=== PATIENT | female | born 1960 | race Caucasian/White ===

== ENCOUNTER → 2016-11-30 | Outpatient (CLI) | payer OTHER ==
[~2016-11-30] MED LIST: ALPR0.254 PO; BP MED; CEFD300C3 PO; CYCL10TA9 PO; DIVA500T PO; ENAL10TA PO; ETOD200C9 PO; FAMO20TA5 PO; GABA-488 PO; HUM100IN4 SQ; HUM100VI SQ; HYDR-700 PO; HYDR-757 PO; INSA70301U SQ; INSU100V16 SC; INSU100V5 SQ; INSULIN; LCT30U PO; LORA-794 PO; LORA10TA7 PO; SERT100T8 PO; SIMV10TA3 PO; SULF1TAB35 PO; TRAM50TA2 PO; TRZ100T PO
--- NOTE | 2016-11-30 13:45 | Diagnostic Imaging Report ---
Lumbar spine. INDICATION: Back pain. FINDINGS: AP, lateral, and spot lateral views were obtained. There are no prior studies available for comparison. The lateral view shows slight retrolisthesis of L5 with respect to S1. There is also fairly severe narrowing of the disc space at L4-L5. The other intervertebral disc spaces are well maintained. There is no fracture or acute bony abnormality evident. There is mild symmetrical sclerosis of the sacroiliac joints. There is no sign of a paraspinal mass. On the spot lateral view, there does appear to be bony overgrowth about the distal sacrum. Most likely, this is a sequela of prior trauma to the sacrum. IMPRESSION: 1. There is no evidence for an acute bony abnormality; however, there does appear to be a healed fracture of the distal sacrum. 2. There is degenerative disc and bony disease in the lower lumbar spine. If there is clinical concern regarding spinal stenosis or nerve root encroachment in this area, then MRI will be recommended for further study. Dictated by: Dictated on workstation # [id number]
== END ==
LOC: RAD 10:05
PROVIDERS: ATTEND Neuromusculoskeletal Medicine, Sports Medicine
DX: Z02.71 Encounter for disability determination (principal)
CPT/HCPCS: 72100

== ENCOUNTER 2018-12-26 05:39 | Outpatient (CLI) | payer MEDICARE, MEDICAID ==
[~2018-12-26] VITALS: Ht 170.2 cm; Wt 70.5 kg
== END 2018-12-26 12:33 | disposition home or self-care (01) ==
LOC: PREOP 05:39
PROVIDERS: ATTEND Surgery
DX: Z01.818 Encounter for other preprocedural examination (principal)

== ENCOUNTER 2019-01-02 08:41 | Day surgery (SDC) | payer MEDICARE, MEDICAID ==
[~2019-01-02] VITALS: Ht 170.2 cm; Wt 70.5 kg
[~2019-01-02 08:41] MED LIST changes: +ALPR0.5T7 PO; +HYDR-4226 PO; -HYDR-757 PO; +LIRA0.6P SQ; +LISI-552 PO; +PANT40TA3 PO; +SIMV20TA PO; +TRAZ-190 PO
[2019-01-02] MEDS ORDERED: LACTATED RINGERS 1,000 ML IV STA (08:44)
[2019-01-02] MEDS ORDERED: LACTATED RINGERS 1,000 ML IV ONE (08:51)
[2019-01-02 08:52] VITALS: BP 127/83
[2019-01-02] MEDS ORDERED: PROPOFOL INJECTION 0 ML IV ONE (08:56)
[2019-01-02] MEDS ORDERED: MIDAZOLAM 2 MG/2 ML (VERSED) VIAL ONE (08:57)
--- NOTE | 2019-01-02 09:08 | Progress Note-Pre Operative ---
Pre-Operative Progress Note H&P Reviewed The H&P was reviewed, patient examined and no changes noted. Date Seen by Provider: Jan 02, 2019 Time Seen by Provider: 09:08 Date H&P Reviewed: Jan 02, 2019 Time H&P Reviewed: 09:08 Pre-Operative Diagnosis: GERD, CHange in bowel habits, family hx colon cancer, chronic constipation GRAHAM CHIANG DO Jan 02, 2019 09:08
[2019-01-02] MEDS ORDERED: HURRICAINE EXT TUBE (BENZOCAINE) ONE (09:11)
[2019-01-02] MEDS ORDERED: PROPOFOL INJECTION 50 ML IV ONE (09:41)
[2019-01-02] MEDS ORDERED: proPOfol 200 MG/20 ML (DIPRIVAN) VIAL IV ONE (09:48)
[2019-01-02] MEDS ORDERED: HURRICAINE EXT TUBE (BENZOCAINE) XX ONE (10:00)
--- NOTE | 2019-01-02 10:14 | Progress Note-Post Operative ---
Post-Operative Progess Note Surgeon (s)/Packing Tractor Machine Operator (s) Surgeon GRAHAM CHIANG DO Packing Tractor Machine Operator: na Pre-Operative Diagnosis GERD, CHange in bowel habits, family hx colon cancer, chronic constipation Post-Operative Diagnosis gastritis, hiatal hernia, colon polyps, hemorrhoids Procedure & Operative Findings Date of Procedure 01/02/19 Procedure Performed/Findings egd c biopsies, colonoscopy c hot bx polypectomy x 3 and snare polypectomy x 1 Anesthesia Type per private branch exchange service advisor Estimated Blood Loss Estimated blood loss (mL): none Specimens/Packing Specimens Removed colon polyps, antrum, body, ge GRAHAM CHIANG DO Jan 02, 2019 10:14
[2019-01-02] MEDS ORDERED: SUCR1TAB36 PO (10:15)
--- NOTE | 2019-01-02 10:16 | Discharge Inst-Simple/Standard ---
Discharge Inst-Standard Discharge Medications New, Converted or Re-Newed RX: Transmitted to Pharmacy Patient Instructions/Follow Up Plan of Care/Instructions/FU: 2 weeks Estiven Activity as Tolerated: Yes Discharge Diet: Regular Diet (high fiber) GRAHAM CHIANG DO Jan 02, 2019 10:16
[2019-01-02 10:20] VITALS: BP 97/53
[2019-01-02 10:50] VITALS: BP 120/77
[2019-01-02 11:12] VITALS: BP 120/77
--- NOTE | 2019-01-02 13:02 | Anesthesia-General Post-Op ---
MAC Patient Condition Mental Status/LOC: Same as Preop Cardiovascular: Satisfactory Nausea/Vomiting: Absent Respiratory: Satisfactory Pain: Controlled Complications: Absent Post Op Complications Complications None Follow Up Care/Instructions Patient Instructions None needed. Anesthesiology Discharge Order Discharge Order Patient is doing well, no complaints, stable vital signs, no apparent adverse anesthesia problems. No complications reported per nursing. ALEX COWART CRNA Jan 02, 2019 13:02
--- NOTE | 2019-01-02 14:39 | OPERATIVE REPORT ---
DATE OF SERVICE: PREOPERATIVE DIAGNOSES: Gastroesophageal reflux disease, change in bowel habits, family history of colon cancer and chronic constipation. POSTOPERATIVE DIAGNOSES: Gastritis, hiatal hernia, colon polyps and hemorrhoids. PROCEDURES PERFORMED: EGD with biopsy, colonoscopy with hot biopsy polypectomy x 3 and snare polypectomy x 1. SURGEON: Graham Jean-Baptiste DO. ANESTHESIA: Per SALON SUPERVISOR. ESTIMATED BLOOD LOSS: None. COMPLICATIONS: None. INDICATIONS: The patient is a 58-year-old female with diagnoses as above. She was explained risks and benefits of the procedures and wished to proceed with procedures. Consent was signed in the chart. PROCEDURE: The patient was taken to the endoscopy suite and placed in the left lateral recumbent position. Timeout was performed. Scope was inserted in the mouth, down the esophagus, stomach and into the duodenum without difficulty. There were no polyps, masses or ulcerations within the duodenum. Scope was slowly retracted back into the stomach where it was further insufflated. Changes of chronic gastritis were present. Biopsies of the stomach and body were obtained. No polyps, masses or ulcerations. The scope was retroflexed just noting a small hiatal hernia, no other pathology noted. Scope was returned to its normal position and slowly withdrawn. In the distal esophagus, there were some slight erythematous changes. Biopsy was obtained. No other changes. Scope was slowly retracted back until completely removed, noting no other pathology. Digital rectal exam was performed. There was some hemorrhoidal disease. No polyps, masses or ulcerations. The scope was inserted in the rectum and advanced all the way to the cecum with minimal difficulty. Prep was adequate. Scope was then slowly retracted back. There were no polyps, masses or ulcerations within the cecum. In the ascending, small polyp was present, which hot biopsy polypectomy was performed. Scope was continued to be slowly retracted back. No polyps, masses or ulcerations within the remainder of the ascending colon, transverse colon, descending colon and sigmoid colon. In the rectum, there is a large polyp, which snare polypectomy was performed. The specimen was too large to be suctioned; therefore it was withdrawn. The scope was reinserted to the point where the specimen was. Near the same locations just opposite side of the rectum was a very small polyp, which hot biopsy polypectomy was performed. Scope was then slowly retracted back into the distal rectum where another polyp was present, which hot biopsy polypectomy was performed. Scope was then slowly retracted back and then retroflexed noting internal hemorrhoidal disease. Scope was returned to its normal position, slowly withdrawn until completely removed, noting no other pathology. The patient tolerated the procedure well without any complications. She was taken to the recovery room in stable condition. RECOMMENDATIONS: The patient will continue on current medications. We will add Carafate 1 gram four times a day. We will have her follow up in the office in 2 weeks. Due to the number of polyps and the large polyp in the rectum, I would recommend repeat colonoscopy in one year for reevaluation. The patient also recommended high-fiber diet due to her constipation issues. We will also discuss with her the followup visit and possibly starting a bowel regimen. Job ID: [id number] DocumentID: [id number] Dictated Date: 01/02/2019 10:20:23 Ornamental Ironworking Supervisor Date: 01/02/2019 14:38:37 Dictated By: GRAHAM JEAN-BAPTISTE DO
== END 2019-01-02 11:12 | disposition home or self-care (01) ==
LOC: ENDO 08:41
PROVIDERS: ATTEND Surgery
DX: D12.2 Benign neoplasm of ascending colon (principal); D12.8 Benign neoplasm of rectum; K62.1 Rectal polyp; K64.9 Unspecified hemorrhoids; K59.09 Other constipation; K29.70 Gastritis, unspecified, without bleeding; K21.9 Gastro-esophageal reflux disease without esophagitis; K44.9 Diaphragmatic hernia without obstruction or gangrene; E11.9 Type 2 diabetes mellitus without complications; K31.9 Disease of stomach and duodenum, unspecified; I10 Essential (primary) hypertension; E78.5 Hyperlipidemia, unspecified; F17.210 Nicotine dependence, cigarettes, uncomplicated; Z80.0 Family history of malignant neoplasm of digestive organs; Z79.899 Other long term (current) drug therapy
CPT/HCPCS: 82962

== ENCOUNTER 2019-10-08 05:09 | Emergency (ER) | payer MEDICARE, MEDICAID ==
[~2019-10-08] VITALS: Ht 170 cm; Wt 90.0 kg
[~2019-10-08 05:09] MED LIST changes: +SUCR1TAB36 PO
[2019-10-08] MEDS ORDERED: NS IV 1000 ML 1,000 ML IV ONE (05:18)
[2019-10-08 05:42] LABS: BASOPHILS % (AUTO) 0 % (0-10); EOSINOPHILS # (AUTO) 0.1 10^3/uL (0.0-0.3); EOSINOPHILS % (AUTO) 2 % (0-10); HEMATOCRIT 42 % (35-52); HEMOGLOBIN 15.2 G/DL (11.5-16.0); LYMPHOCYTES # (AUTO) 2.4 X 10^3 (1.0-4.0); LYMPHOCYTES % (AUTO) 34 % (12-44); MEAN CORPUSCULAR HEMOGLOBIN 33 PG (25-34); MEAN CORPUSCULAR HGB CONC 36 G/DL (32-36); MEAN CORPUSCULAR VOLUME 92 FL (80-99); MONOCYTES # (AUTO) 0.4 X 10^3 (0.0-1.0); MONOCYTES % (AUTO) 6 % (0-12); NEUTROPHILS # (AUTO) 3.9 X 10^3 (1.8-7.8); NEUTROPHILS % (AUTO) 57 % (42-75); PLATELET COUNT 111 10^3/uL (130-400); RED CELL DISTRIBUTION WIDTH 13.6 % (10.0-14.5); WHITE BLOOD COUNT 6.9 10^3/uL (4.3-11.0)
--- NOTE | 2019-10-08 05:49 | ED Fall/Injury ---
General Chief Complaint: Trauma-Non Activation Stated Complaint: FALL Nursing Triage Note: PT STATES SHE FELL 24HRS AGO IN HER BATHTUB. STATES SHE EXPERIENCED A LOC AT THAT TIME. DENIES NECK TENDERNESS, VERBALIZES PAIN TO THE ANTERIOR PORTION OF THE SKULL. STATES SHE HAS FELT VERY POOR SINCE THE FALL. VERBALIZES BILAT HIP TENDERNESS. Source: patient, EMS Exam Limitations: no limitations (CYNTHIA SAHU MD) History of Present Illness Date Seen by Provider: Oct 08, 2019 Time Seen by Provider: 05:11 Initial Comments This 59-year-old woman is brought to the emergency room by EMS after having a fall in her home about 24 hours ago. She slipped getting out of the bathtub and struck her face on the edge of the bathtub. She reports loss of consciousness. She has pain on the posterior occiput and complains of generalized achiness all over. She has pain in the hips as well. She admits to drinking alcohol this morning and states her last drink was around midnight. She smells heavily of alcohol. She has multiple scabbed abrasions on her extremities. Her bony prominences including elbows and knees are erythematous. She was ambulatory at the scene for EMS. C-collar was placed on site. She is alert and oriented at this time. Occurred: yesterday (CYNTHIA SAHU MD) Allergies and Home Medications Allergies Coded Allergies: Iodinated Contrast- Oral and IV Dye (Verified Allergy, Mild, HIVES, 12/26/18) aspirin (Verified Adverse Reaction, Mild, NAUSEA, 12/26/18) Home Medications Alprazolam 0.5 Mg Tablet, 0.5 MG PO Q6H PRN for ANXIETY, (Reported) Cyclobenzaprine HCl 10 Mg Tablet, 10 MG PO BID PRN for MUSCLE SPASMS, (Reported) Hydrocodone/Acetaminophen 1 Each Tablet, 1 EACH PO Q4H PRN for PAIN Prescribed by: GALILEO BRO on 04/23/16 1503 Liraglutide 0.6 Mg/0.1 Ml Pen.injctr, 1.2 MG SQ DAILY, (Reported) Lisinopril 20 Mg Tablet, 20 MG PO DAILY, (Reported) Loratadine 10 Mg Tablet, 10 MG PO DAILY PRN for ALLERGIES, (Reported) Pantoprazole Sodium 40 Mg Tablet.dr, 40 MG PO DAILY, (Reported) Sertraline HCl 100 Mg Tablet, 200 MG PO HS, (Reported) TAKES 2 (100 MG) TABLETS / LAST PICKED UP 10/21/15 #60 Simvastatin 20 Mg Tablet, 20 MG PO DAILY, (Reported) Sucralfate 1 Gm Tablet, 1 GM PO QID Prescribed by: GRAHAM CHIANG on 01/02/19 1015 Trazodone HCl 100 Mg Tablet, 200 MG PO HS, (Reported) Patient Home Medication List Home Medication List Reviewed: Yes (CYNTHIA SAHU MD) Review of Systems Review of Systems Constitutional: no symptoms reported Eyes: No Symptoms Reported Ears, Nose, Mouth, Throat: no symptoms reported Respiratory: no symptoms reported Cardiovascular: no symptoms reported Gastrointestinal: no symptoms reported Genitourinary: no symptoms reported : No Musculoskeletal: see HPI Skin: see HPI Psychiatric/Neurological: See HPI (CYNTHIA SAHU MD) Past Tiwiuse-Eovunu-Ndbwwz Hx Past Med/Social Hx: Reviewed Nursing Past Med/Soc Hx (CYNTHIA SAHU MD) Patient Social History Alcohol Use: Occasionally Uses Alcohol Beverage of Choice: Beer Recreational Drug Use: No Smoking Status: Current Everyday Smoker Type Used: Cigarettes 2nd Hand Smoke Exposure: Yes Recent Foreign Travel: No Contact w/Someone Who Travel: No Recent Infectious Disease Expo: No Recent Hopitalizations: No Physical Abuse: No Sexual Abuse: No Mistreated: No Fear: No (CYNTHIA SAHU MD) Immunizations Up To Date Tetanus Booster (TDap): Less than 5yrs Date of Pneumonia Vaccine: Aug 15, 2017 Date of Influenza Vaccine: Aug 14, 2018 (CYNTHIA SAHU MD) Seasonal Allergies Seasonal Allergies: Yes (CYNTHIA SAHU MD) Past Medical History Surgeries: Yes Appendectomy, Tonsillectomy, Tubal Ligation Respiratory: No Cardiac: Yes High Cholesterol, Hypertension 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) Seizure Disorder : No Reproductive Disorders: No CMS EXPERT History: Menopausal Sexually Transmitted Disease: No HIV/AIDS: No Genitourinary: Yes UTI-Chronic Gastrointestinal: Yes Gastroesophageal Reflux, Chronic Constipation Musculoskeletal: Yes Arthritis, Spasms Endocrine: Yes Diabetes, Insulin dep HEENT: Yes (GLASSES) Loss of Vision: Bilateral Hearing Impairment: Denies Cancer: No Psychosocial: Yes Anxiety, Depression Integumentary: No Blood Disorders: No Adverse Reaction/Blood Tranf: No (N/A) (CYNTHIA SAHU MD) Family Medical History Reviewed Nursing Family Hx (CYNTHIA SAHU MD) Alzheimer's disease 19 MOTHER Bone cancer 19 FATHER, Onset:63 FH: lung cancer 19 FATHER, Onset:63 G8 BROTHER, Onset:56 FH: stroke 19 FATHER Hypertension 19 MOTHER Myocardial infarction G8 BROTHER Rectal cancer G8 BROTHER Physical Exam Vital Signs Vital Signs - First Documented 10/08/19 05:10 Temp 36.9 Pulse 115 Resp 18 B/P (MAP) 134/84 (101) Pulse Ox 96 O2 Delivery Room Air (JOHN,XU L DO) Vital Signs Capillary Refill : Less Than 3 Seconds (CYNTHIA SAHU MD) Height, Weight, BMI Height: 5'7.00" Weight: 155lbs. 6.4oz. 70.267109ny; 31.00 BMI Method:Stated General Appearance: WD/WN, no apparent distress, other (smells heavily of alcohol) HEENT: PERRL/EOMI, other (no acute dental injury. Left periorbital ecchymosis.) Neck: non-tender, normal inspection, other (c-collar in place) Cardiovascular: no edema, tachycardia, systolic murmur Respiratory: lungs clear, normal breath sounds, no respiratory distress, no accessory muscle use Gastrointestinal: normal bowel sounds, non tender, soft Extremities: other (multiple scabbed excoriations. Erythema over bony pro minences and toes. Tenderness over the hips but no pain with rotation of the hips.) Neurologic/Psychiatric: child and family counselor II-XII nml as tested, alert, normal mood/affect, oriented x 3, motor weakness (generalized) Skin: warm/dry, other (multiple scabbed excoriations. Erythema over the bony prominences.) (CYNTHIA SAHU MD) [place] Coma Score Best Eye Response: (4) Open Spontaneously Best Verbal Response: (5) Oriented Best Motor Response: (6) Obeys Commands [place] Total: 15 (CYNTHIA SAHU MD) Progress/Results/Core Measures Results/Orders Lab Results Laboratory Tests Test 10/08/19 05:30 10/08/19 07:56 Range/Units White Blood Count 6.9 4.3-11.0 10^3/uL Red Blood Count 4.58 4.35-5.85 10^6/uL Hemoglobin 15.2 11.5-16.0 G/DL Hematocrit 42 35-52 % Mean Corpuscular Volume 92 80-99 FL Mean Corpuscular Hemoglobin 33 25-34 PG Mean Corpuscular Hemoglobin Concent 36 32-36 G/DL Red Cell Distribution Width 13.6 10.0-14.5 % Platelet Count 111 L 130-400 10^3/uL Mean Platelet Volume 13.0 H 7.4-10.4 FL Neutrophils (%) (Auto) 57 42-75 % Lymphocytes (%) (Auto) 34 12-44 % Monocytes (%) (Auto) 6 0-12 % Eosinophils (%) (Auto) 2 0-10 % Basophils (%) (Auto) 0 0-10 % Neutrophils # (Auto) 3.9 1.8-7.8 X 10^3 Lymphocytes # (Auto) 2.4 1.0-4.0 X 10^3 Monocytes # (Auto) 0.4 0.0-1.0 X 10^3 Eosinophils # (Auto) 0.1 0.0-0.3 10^3/uL Basophils # (Auto) 0.0 0.0-0.1 10^3/uL Sodium Level 137 135-145 MMOL/L Potassium Level 3.8 3.6-5.0 MMOL/L Chloride Level 100 98-107 MMOL/L Carbon Dioxide Level 17 L 21-32 MMOL/L Anion Gap 20 H 5-14 MMOL/L Blood Urea Nitrogen 13 7-18 MG/DL Creatinine 1.08 0.60-1.30 MG/DL Estimat Glomerular Filtration Rate 52 BUN/Creatinine Ratio 12 Glucose Level 352 H 70-105 MG/DL Calcium Level 9.3 8.5-10.1 MG/DL Corrected Calcium 9.3 8.5-10.1 MG/DL Magnesium Level 1.8 1.6-2.4 MG/DL Total Bilirubin 0.5 0.1-1.0 MG/DL Aspartate Amino Transf (AST/SGOT) 29 5-34 U/L Alanine Aminotransferase (ALT/SGPT) 32 0-55 U/L Alkaline Phosphatase 122 40-136 U/L Total Creatine Kinase 57 29-168 U/L Total Protein 7.5 6.4-8.2 GM/DL Albumin 4.0 3.2-4.5 GM/DL Serum Alcohol 115 H <10 MG/DL Urine Color YELLOW Urine Clarity CLEAR Urine pH 6.0 5-9 Urine Specific Boyd 1.015 L 1.016-1.022 Urine Protein NEGATIVE NEGATIVE Urine Glucose (UA) 3+ H NEGATIVE Urine Ketones TRACE H NEGATIVE Urine Nitrite NEGATIVE NEGATIVE Urine Bilirubin NEGATIVE NEGATIVE Urine Urobilinogen 0.2 < = 1.0 MG/DL Urine Leukocyte Esterase NEGATIVE NEGATIVE Urine RBC (Auto) 1+ H NEGATIVE Urine RBC RARE /HPF Urine WBC 0-2 /HPF Urine Squamous Epithelial Cells 0-2 /HPF Urine Crystals NONE /LPF Urine Bacteria NEGATIVE /HPF Urine Casts NONE /LPF Urine Mucus NEGATIVE /LPF Urine Culture Indicated NO Urine Opiates Screen NEGATIVE NEGATIVE Urine Oxycodone Screen NEGATIVE NEGATIVE Urine Methadone Screen NEGATIVE NEGATIVE Urine Propoxyphene Screen NEGATIVE NEGATIVE Urine Barbiturates Screen NEGATIVE NEGATIVE Ur Tricyclic Antidepressants Screen NEGATIVE NEGATIVE Urine Phencyclidine Screen NEGATIVE NEGATIVE Urine Amphetamines Screen NEGATIVE NEGATIVE Urine Methamphetamines Screen NEGATIVE NEGATIVE Urine Benzodiazepines Screen POSITIVE H NEGATIVE Urine Cocaine Screen NEGATIVE NEGATIVE Urine Cannabinoids Screen NEGATIVE NEGATIVE (JOHN,XU L DO) Medications Given in ED Current Medications Medications Dose Ordered Sig/Paola Route Start Time Stop Time Status Last Admin Dose Admin Sodium Chloride 1,000 ml @ 0 mls/hr Q0M ONCE IV 10/08/19 05:18 10/08/19 05:21 DC 10/08/19 05:24 0 MLS/HR (JOHN,XU L DO) Vital Signs/I&O 10/08/19 05:10 Temp 36.9 Pulse 115 Resp 18 B/P (MAP) 134/84 (101) Pulse Ox 96 O2 Delivery Room Air (JOHN,XU L DO) Blood Pressure Mean: 101 POS Progress Progress Note : Time: 05:55 Progress Note Patient was seen and examined. Labs and imaging studies are pending. Care of this patient is being transitioned to Dr. John. (CYNTHIA SAHU MD) Diagnostic Imaging Diagonstic Imaging: Xray Plain Films/CT/US/NM/MRI: pelvis Comments NAME: LYDIA CASTRO [facility] REC#: [id number] PT STATUS: REG ER : 1960 PHYSICIAN: CYNTHIA SAHU MD ADMIT DATE: 10/08/19/ER Signed Date of Exam:10/08/19 PELVIS INDICATION: Fall with pelvic pain. AP view of the pelvis is obtained. FINDINGS: No acute fracture or dislocation is identified. No abnormal lytic or sclerotic focus is seen, and there is no radiopaque foreign body. IMPRESSION: No acute abnormality. Dictated by: Dictated on workstation # [id number] Dict: 10/08/19 0710 Trans: 10/08/19 0748 KB [id number] Interpreted by: CINDY WASHINGTON MD Electronically signed by: CINDY WASHINGTON MD 10/08/1947 Diagonstic Imaging: Xray Plain Films/CT/US/NM/MRI: chest Comments NAME: LYDIA CASTRO [facility] REC#: [id number] PT STATUS: REG ER : 1960 PHYSICIAN: CYNTHIA SAHU MD ADMIT DATE: 10/08/19/ER Signed Date of Exam:10/08/19 CHEST 1 VIEW, AP/PA ONLY INDICATION: Fall Single AP view of the chest is obtained. COMPARISON: No previous study is available for comparison at this time. FINDINGS: Heart size and pulmonary vasculature are within normal limits, and the lungs are clear, bilaterally. IMPRESSION: Unremarkable chest. Dictated by: Dictated on workstation # [id number] Dict: 10/08/19 0638 Trans: 10/08/19 0748 [id number] Interpreted by: CINDY WASHINGTON MD Electronically signed by: CINDY WASHINGTON MD 10/08/1947 Diagonstic Imaging: CT Plain Films/CT/US/NM/MRI: c-spine, head Comments NAME: LYDIA CASTRO MED REC#: [id number] PT STATUS: REG ER : 1960 PHYSICIAN: CYNTHIA SAHU MD ADMIT DATE: 10/08/19/ER Signed Date of Exam:10/08/19 CT HEAD/CERVICAL SPINE WO PROCEDURE: CT head and CT cervical spine without contrast. TECHNIQUE: Multiple contiguous axial images were obtained through the brain and cervical spine without the use of intravenous contrast. Sagittal and coronal reformations through the cervical spine were then performed. Auto Exposure Controls were utilized during the CT exam to meet ALARA standards for radiation dose reduction. INDICATION: Fall with head and neck injury. CT HEAD: CT images of the head were obtained. FINDINGS: Ventricles and sulci are within normal limits for size. There is no intracranial hemorrhage identified. There is no abnormal mass effect or shift of midline structures. There is probable incidental mineralization of the basal ganglia. There is moderate atherosclerotic calcification within distal internal carotid and vertebral arteries. Small amount of fluid is seen within the left maxillary sinus. IMPRESSION: Unremarkable CT of the head. 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 There is mild associated degenerative facet arthropathy in the cervical spine. There is no evidence of an acute fracture or subluxation. IMPRESSION: C5-C6 fusion and mild cervical degenerative change. No acute cervical spinal abnormality is identified. Dictated by: Dictated on workstation # [id number] Dict: 10/08/19 0638 Trans: 10/08/19 0748 KB [id number] Interpreted by: CINDY WASHINGTON MD Electronically signed by: CINDY WASHINGTON MD 10/08/19 0748 (CYNTHIA SAHU MD) Departure Impression Primary Impression: Fall in bathtub Qualified Codes: W18.2XXA - Fall in (into) shower or empty bathtub, initial encounter Additional Impression: Alcohol abuse with intoxication Disposition: 01 HOME, SELF-CARE Condition: Stable Departure-Patient Inst. Referrals: [facility] (PCP) Primary Care Physician NO,LOCAL PHYSICIAN (Family) Primary Care Physician Patient Instructions: Alcohol Use - When Is Drinking a Problem?, Contusion (DC), Effects of Alcohol on Your Health Copy Copies To 1: RITA PORTER JOSHUA T MD Oct 08, 2019 05:49 XU COLE DO Oct 08, 2019 08:23 POS
[2019-10-08 06:00] LABS: CALCIUM 9.3 MG/DL (8.5-10.1); CREATININE SERUM 1.08 MG/DL (0.60-1.30); MAGNESIUM 1.8 MG/DL (1.6-2.4); POTASSIUM 3.8 MMOL/L (3.6-5.0)
[2019-10-08 06:01] LABS: BILIRUBIN,TOTAL 0.5 MG/DL (0.1-1.0); TOTAL PROTEIN 7.5 GM/DL (6.4-8.2)
--- NOTE | 2019-10-08 06:40 | Diagnostic Imaging Report ---
INDICATION: Fall Single AP view of the chest is obtained. COMPARISON: No previous study is available for comparison at this time. FINDINGS: Heart size and pulmonary vasculature are within normal limits, and the lungs are clear, bilaterally. IMPRESSION: Unremarkable chest. Dictated by: Dictated on workstation # [id number]
--- NOTE | 2019-10-08 06:43 | Diagnostic Imaging Report ---
PROCEDURE: CT head and CT cervical spine without contrast. TECHNIQUE: Multiple contiguous axial images were obtained through the brain and cervical spine without the use of intravenous contrast. Sagittal and coronal reformations through the cervical spine were then performed. Auto Exposure Controls were utilized during the CT exam to meet ALARA standards for radiation dose reduction. INDICATION: Fall with head and neck injury. CT HEAD: CT images of the head were obtained. FINDINGS: Ventricles and sulci are within normal limits for size. There is no intracranial hemorrhage identified. There is no abnormal mass effect or shift of midline structures. There is probable incidental mineralization of the basal ganglia. There is moderate atherosclerotic calcification within distal internal carotid and vertebral arteries. Small amount of fluid is seen within the left maxillary sinus. IMPRESSION: Unremarkable CT of the head. 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 There is mild associated degenerative facet arthropathy in the cervical spine. There is no evidence of an acute fracture or subluxation. IMPRESSION: C5-C6 fusion and mild cervical degenerative change. No acute cervical spinal abnormality is identified. Dictated by: Dictated on workstation # [id number]
--- NOTE | 2019-10-08 07:00 | NUR ---
REPORT GIVEN TO RAHUL RN
--- NOTE | 2019-10-08 07:12 | Diagnostic Imaging Report ---
INDICATION: Fall with pelvic pain. AP view of the pelvis is obtained. FINDINGS: No acute fracture or dislocation is identified. No abnormal lytic or sclerotic focus is seen, and there is no radiopaque foreign body. IMPRESSION: No acute abnormality. Dictated by: Dictated on workstation # [id number]
[2019-10-08 08:05] LABS: BILIRUBIN,URINE NEGATIVE (NEGATIVE); CLARITY,URINE CLEAR; COLOR,URINE YELLOW; GLUCOSE, URINE (UA) 3+ (NEGATIVE); KETONES,URINE TRACE (NEGATIVE); LEUKOCYTE ESTERASE ,URINE NEGATIVE (NEGATIVE); NITRITE,URINE NEGATIVE (NEGATIVE); PROTEIN,URINE NEGATIVE (NEGATIVE)
[2019-10-08 08:14] LABS: BACTERIA,URINE NEGATIVE /HPF; RBC,URINE RARE /HPF; SQUAMOUS EPITHELIAL CELL,UR 0-2 /HPF; WBC,URINE 0-2 /HPF
[2019-10-08 08:20] LABS: AMPHETAMINE SCREEN, URINE NEGATIVE (NEGATIVE); BARBITURATE SCREEN URINE NEGATIVE (NEGATIVE); BENZODIAZEPINES SCREEN URINE POSITIVE (NEGATIVE); CANNABINOID SCREEN, URINE NEGATIVE (NEGATIVE); COCAINE SCREEN URINE NEGATIVE (NEGATIVE); METHADONE STAT NEGATIVE (NEGATIVE); METHAMPHETAMINE SCREEN URINE S NEGATIVE (NEGATIVE); OPIATE SCREEN URINE NEGATIVE (NEGATIVE); OXYCODONE STAT NEGATIVE (NEGATIVE); PROPOXYPHENE STAT NEGATIVE (NEGATIVE); TRICYCLIC ANTIDEPRESSANTS SCRE NEGATIVE (NEGATIVE)
[2019-10-08 08:42] VITALS: BP 114/74
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
--- OUTSIDE RECORDS SUMMARY | 2019-11-01 14:57 | XMS REPORT ---
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 Problem Multiple and unspecified ope n wound of lower limb, without mention of complication 894.0 Active Problem Other specified disease of sebaceous glands 706.8 Active Problem Diabetes mellitus without me ntion of complication, type II or unspecified type, not stated as uncontrolled 250.00 Active Problem Depression, major, recurrent, moderate 296.32 Active Problem Acute sinusitis, unspecified 461.9 Active Problem Cough 786.2 Active Problem Lumbago 724.2 Active Problem Urinary tract infection, site not specified 599.0 Active Problem Need for prophylactic vaccination and inoculation, Inf luenza V04.81 Active Problem Plantar fascial fibromatosis 728.71 Active Problem Unspecified hereditary and idiopathic peripheral neuro chantal 356.9 Active Problem Spasm of muscle 728.85 Active Problem 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
--- OUTSIDE RECORDS SUMMARY | 2019-11-01 14:57 | XMS REPORT ---
Author Author Angelique MERCHANT Organization [employer] Address Unknown Phone Unavailable Care Team Providers Care Carpenter Supervisor Wooden Ship Name Role Phone RGEGG MERCHANT CP Unavailable Allergies No Known Allergies Problems Problem Type Condition Code Onset Dates Condition Statu s Problem Cellulitis and abscess of leg, except foot 682.6 Active Problem Other specified disease of sebaceous glands 706.8 Active Problem Cough 786.2 Active Problem Unspecified hereditary and idiopathic peripheral neuro chantal 356.9 Active Problem Acute sinusitis, unspecified 461.9 Active Problem Lumbago 724.2 Active Problem Urinary tract infection, site not specified 599.0 Active Problem DM neuro manif type II E11.40 Activ e Problem Depression, major, recurrent, moderate 296.32 Active Problem Plantar fascial fibromatosis 728.71 Active Problem Need for prophylactic vaccination and inoculation, Inf luenza V04.81 Active Problem Diabetes type 2, uncontrolled E11.65 Active Problem Spasm of muscle 728.85 Active Problem Multiple and unspecified ope n wound of lower limb, without mention of complication 894.0 Active Problem Diabetes mellitus without me ntion of complication, type II or unspecified type, not stated as uncontrolled 250.00 Active Problem Insulin dose changed V58.69 Active Problem Insulin long-term use V58.67 Active Problem 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
--- OUTSIDE RECORDS SUMMARY | 2019-11-01 14:57 | XMS REPORT ---
Author Author Angelique GAMBLE Organization [employer] Address Unknown Phone Unavailable Care Team Providers Care Obstetrics Nurse Practitioner Name Role Phone THIAGO GAMBLE CP Unavailable Allergies, Adverse Reactions, Alerts Substance Reaction Event Type Aspirin Info Not Available Drug Allergy Contrast Dye Info Not Available Non Drug Allergy Problems Problem Type Condition Code Onset Dates Condition Statu s Assessment Psychiatric pseudoseizure F44.5 Ac tive Problem Other specified disease of sebaceous glands 706.8 Active Problem Unspecified hereditary and idiopathic peripheral neuro chantal 356.9 Active Problem Acute sinusitis, unspecified 461.9 Active Problem Spasm of muscle 728.85 Active Problem Urinary tract infection, site not specified 599.0 Active Problem Need for prophylactic vaccination and inoculation, Inf luenza V04.81 Active Problem Lumbago 724.2 Active Problem Multiple and unspecified ope n wound of lower limb, without mention of complication 894.0 Active Problem Diabetes mellitus without me ntion of complication, type II or unspecified type, not stated as uncontrolled 250.00 Active Problem Diabetes E11.9 Active Problem Diabetes type 2, uncontrolled E11.65 Active Problem Other and unspecified hyperlipidemia 272.4 Active Problem Other abnormal glucose 790.29 Activ e Problem Other specified diabetes mellitus with ketoacido sis without coma E13.10 Active Problem Plantar fascial fibromatosis 728.71 Active Problem Insulin dose changed V58.69 Active Problem Insulin long-term use V58.67 Active Problem DM neuro manif type II E11.40 Activ e Problem Depression, major, recurrent, moderate 296.32 Active Problem Nondependent alcohol abuse, unspecified drunkenness 30 5.00 Active Problem 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 Problem 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 2 tablets Depakote [facility] [address]-06 500 mg 3 times a day Aug 28, 2014 1 tablet Trazodone HCl [facility] [address]-12 100 MG Orally Once a day June 03 1 tablet at bedtime Lancets [facility] 0 1 3 times a day January 19, 2016 1 test blood sugar BusPIRone HCl [facility] [address]-58 5 mg 2 times a day 1 tablet Gabapentin [facility] 00851980749 300 MG 3 times a day 1 capsule Simvastatin [facility] [address]-28 20 mg Once a day Aug 28, 2014 1 tablet in the evening Sertraline HCl [facility] [address]-32 100 MG Orally Once a day Jul 10 015 2 tablets Pepcid [facility] [address]-08 20 mg 2 times a day Aug 28, 2014 1 tablet Hydrocodone-Acetaminophen [facility] [address]-23 5-325 MG Orall y every 6 hrs April 23, 2016 1 tablet as needed Baclofen [facility] [address]-93 20 MG Orally every 8 hrs June 03 16 Jul 03, 2016 1 tablet with food or milk NovoLog Flexpen [facility] [address]-72 100 UNIT/ML Subcutaneous 3 times a day January 15, 2016 Inject 10 units with breakfast and lunch, and 15 units with dinner Enalapril Maleate [facility] [address]-26 10 mg Once a day Aug 28, 2014 1 tablet Procedures Procedure Coding System Code Date Office Visit, Est Pt., Level 4 CPT-4 17645 A 2015 Vital Signs Date/Time: Jun 14, 2016 Cardiac Monitoring Heart Rate 104 bpm Weight 168.0 lbs Height 67 in BMI 26.31 Index Blood Pressure Diastolic 81 mmHg Blood Pressure Systolic 126 mmHg Results No Known Results Summary Purpose [employer] Submission
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
--- OUTSIDE RECORDS SUMMARY | 2019-11-01 14:57 | XMS REPORT ---
Author Author Angelique MERCHANT Organization [facility] Address [address] [place] [address] Care Team Providers Care Yeast Tender Name Role Phone GREGG MERCHANT Unavailable PROBLEMS Type Condition ICD9-CM Code KDC78-NO Code Onset Dates Condition S tatus SNOMED Code Problem Insulin dose changed V58.69 Active 941033728 Problem Insulin long-term use V58.67 Active 120856624 Problem Type 2 diabetes mellitus without complications E11 .9 Active 083287285 Problem Other specified diabetes mellitus with ketoacido sis without coma E13.10 Active 099499980 Problem DM neuro manif type II E11.40 Active 25453215 Problem Depression, major, recurrent, moderate 296.32 Active 234017121 Problem Diabetes E11.9 Active 63511246 Problem Diabetes type 2, uncontrolled E11.65 Active 349824387 ALLERGIES Unknown Allergies SOCIAL HISTORY No smoking Hx information available PLAN OF CARE VITAL SIGNS MEDICATIONS Unknown Medications RESULTS No Results PROCEDURES No Known procedures IMMUNIZATIONS No Known Immunizations
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
--- OUTSIDE RECORDS SUMMARY | 2019-11-01 14:57 | XMS REPORT ---
Author Author Angelique MERCHANT Organization [facility] Address [address] [place] [address] Care Team Providers Care Washcloth Folder Name Role Phone MAYUR GREGG Unavailable PROBLEMS Type Condition ICD9-CM Code ZUJ46-RU Code Onset Dates Condition S tatus SNOMED Code Problem Insulin dose changed V58.69 Active 476657421 Problem Insulin long-term use V58.67 Active 677701724 Problem Type 2 diabetes mellitus without complications E11 .9 Active 629506230 Problem Other specified diabetes mellitus with ketoacido sis without coma E13.10 Active 069858312 Problem DM neuro manif type II E11.40 Active 29567843 Problem Depression, major, recurrent, moderate 296.32 Active 948152872 Problem Diabetes E11.9 Active 32760842 Problem Diabetes type 2, uncontrolled E11.65 Active 507661969 ALLERGIES Substance Reaction Event Type Date Status Aspirin Unknown Drug Allergy March, Active Contrast Dye Unknown Non Drug Allergy March, Active SOCIAL HISTORY Never Assessed PLAN OF CARE VITAL SIGNS Height 67 in 2017-03-18 Weight 153.8 lbs 2017-03-18 Temperature 99.1 degrees Fahrenheit 2017-03-18 Heart Rate 118 bpm 2017-03-18 Respiratory Rate 20 2017-03-18 BMI 24.09 kg/m2 2017-03-18 Blood pressure systolic 140 mmHg 2017-03-18 Blood pressure diastolic 82 mmHg 2017-03-18 MEDICATIONS Medication Instructions Dosage Frequency Start Date End Date Duration S tatus Amoxicillin 500 mg Orally 3 times a day 1 capsule 8h March, 17 March, 14 days Active NovoLog Flexpen 100 UNIT/ML Subcutaneous 3 times a day Injec t 10 units with breakfast and lunch, and 15 units with dinner 8h Jan, Active Hydrocodone-Acetaminophen 5-325 MG Orally every 6 hrs 1 tablet as n eeded 6h March, Active Trazodone HCl 100 MG Orally Once a day 1 tablet at bedtime 24h 2 May, 30 day(s) Active Sertraline HCl 100 MG Orally Once a day 2 tablets 24h Jul, 30 day(s) Active Gabapentin 300 MG 1 capsule 8h 30 Acti ve BusPIRone HCl 5 mg 1 tablet 12h 30 Acti ve Enalapril Maleate 10 mg 1 tablet 24h Aug, Active Lancets 1 1 test blood sugar 8h 14 Jan, 2016 Active Levemir FlexTouch 100 UNIT/ML Subcutaneous at bedtime 25 units Jan, Active Simvastatin 20 mg 1 tablet in the evening 24h Aug, Active Alprazolam 0.25 MG Orally in the morning and two tablets at night. 2 tablets Active Pepcid 20 mg 1 tablet 12h Aug, Activ e Depakote 500 mg 1 tablet 8h Aug, Ac tive RESULTS No Results PROCEDURES No Known procedures IMMUNIZATIONS No Known Immunizations MEDICAL (GENERAL) HISTORY Type Description Date Medical [...]
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
--- OUTSIDE RECORDS SUMMARY | 2019-11-01 14:57 | XMS REPORT ---
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 Assessment Diabetes type 2, uncontrolled E11.65 Active Problem Cellulitis and abscess of leg, except foot 682.6 Active Problem Other specified disease of sebaceous glands 706.8 Active Problem Cough 786.2 Active Problem Urinary tract infection, site not specified 599.0 Active Problem Acute sinusitis, unspecified 461.9 Active Problem Depression, major, recurrent, moderate 296.32 Active Problem Insulin dose changed V58.69 Active Problem Need for prophylactic vaccination and inoculation, Inf luenza V04.81 Active Problem Spasm of muscle 728.85 Active Problem Diabetes type 2, uncontrolled E11.65 Active Problem Unspecified hereditary and idiopathic peripheral neuro chantal 356.9 Active Problem Diabetes mellitus without me ntion of complication, type II or unspecified type, not stated as uncontrolled 250.00 Active Problem Lumbago 724.2 Active Problem Insulin long-term use V58.67 Active Problem Multiple and unspecified ope n wound of lower limb, without mention of complication 894.0 Active Problem Other and unspecified hyperlipidemia 272.4 Active Problem 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 Problem Plantar fascial fibromatosis 728.71 Active Problem Other abnormal glucose 790.29 Activ e Problem 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 Problem Hypopotassemia 276.8 Active Problem Unspecified gastritis and ga stroduodenitis without mention of hemorrhage 535.50 Active Problem Nondependent alcohol abuse, unspecified drunkenness 30 5.00 Active Medications Medication Code System Code Instructions Start Date End Date Status Dosage Enalapril Maleate [facility] [address]-83 10 mg Aug 28, 2014 take 1 tablet (10 mg) by oral route once daily Sertraline HCl [facility] [address]-32 100 MG Orally Once a day X4 days then 1 tab Jul 10, 2015 0.5 tablet tramadol [facility] 0 50 mg Aug 28, 2014 take 1 tab let (50 mg) by oral route every 6 hours as needed PRN pain cyclobenzaprine [facility] [address]-77 10 mg Aug 28, 2014 1 tablet 2 times per day PRN Depakote [facility] [address]-54 500 mg Aug 28, 2014 candy e 1 tablet (500 mg) by oral route 2 times per day trazodone [facility] [address]-00 100 mg Aug 28, 2014 1 Tablet 1 time per day at night NovoLog Mix 70/30 Flexpen [facility] [address]-10 (70-30 ) 100 UNIT/ML Subcutaneous 2 times a day Sep 08, 2015 20 units Alprazolam [facility] [address]-69 0.25 MG Orally 2 tablets in the morning and two tablets at night. 2 tablets Simvastatin [facility] [address]-53 20 mg Aug 28, 2014 t kobe 1 tablet (20 mg) by oral route once daily in the evening Gabapentin [facility] [address]-55 300 mg Aug 28, 2014 t kobe 1 capsule (300 mg) by oral route 3 times per day Pepcid [facility] [address]-80 20 mg Aug 28, 2014 1 tab let by Oral route 2 times per day Procedures Procedure Coding System Code Date FLUARIX QUAD (3 & UP)-GSK CPT-4 71389 N 2014 SINGLE IMMUNIZATION ADMIN CPT-4 20794 Sep Office Visit, Est Pt., Level 3 CPT-4 95735 N 2014 Vital Signs Date/Time: Sep 08, 2015 Temperature 97.3 F Weight 156.7 lbs Height 67 in BMI 24.54 Index Blood Pressure Diastolic 96 mmHg Blood Pressure Systolic 154 mmHg Cardiac Monitoring Heart Rate 100 bpm Results No Known Results Immunizations Vaccine Administration Date FLUARIX QUAD (3 & UP)-GSK-2014Sep 08, 2015 Summary Purpose eClinicalWorks Submission
--- OUTSIDE RECORDS SUMMARY | 2019-11-01 14:57 | XMS REPORT ---
Author Author Angelique REYNAGA Organization eClinicalWorks Address Unknown Phone Unavailable Care Team Providers Care Deicer Finisher Name Role Phone MARY REYNAGA CP Unavailable Allergies No Known Allergies Problems Problem Type Condition Code Onset Dates Condition Statu s Assessment DM neuro manif type II E11.40 Activ e Assessment Foot drop M21.379 Active Problem Cellulitis and abscess of leg, [...] metabolism 270.6 Active Medications No Known Medications Procedures Procedure Coding System Code Date Office Visit, Est Pt., Level 3 CPT-4 92981 N 2014 Vital Signs Date/Time: Sep 12, 2015 Blood Pressure Diastolic 82 mmHg Blood Pressure Systolic 130 mmHg Height 67 in Results No Known Results Summary Purpose eClinicalWorks Submission
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
--- OUTSIDE RECORDS SUMMARY | 2019-11-01 14:57 | XMS REPORT ---
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 Name Role Phone GREGG MERCHANT CP Unavailable Allergies, Adverse Reactions, Alerts Substance Reaction Event Type Aspirin Info Not Available Drug Allergy Contrast Dye Info Not Available Non Drug Allergy Problems Problem Type Condition Code Onset Dates Condition Statu s Assessment Neuropathy G62.9 Active Assessment Diabetes E11.9 Active Problem Other specified disease of sebaceous glands 706.8 Active Problem Cough 786.2 Active Problem Unspecified hereditary and idiopathic peripheral neuro chantal 356.9 Active Problem Acute sinusitis, unspecified 461.9 Active Problem Spasm of muscle 728.85 Active Problem Urinary tract infection, site not specified 599.0 Active Problem Diabetes mellitus without me ntion of complication, type II or unspecified type, not stated as uncontrolled 250.00 Active Problem Lumbago 724.2 Active Problem Diabetes type 2, uncontrolled E11.65 Active Problem DM neuro manif type II E11.40 Activ e Problem Other abnormal glucose 790.29 Activ e Problem Plantar fascial fibromatosis 728.71 Active Problem Diabetes E11.9 Active Problem Need for prophylactic vaccination and inoculation, Inf luenza V04.81 Active Problem Insulin long-term use V58.67 Active Problem Multiple and unspecified ope n wound of lower limb, without mention of complication 894.0 Active Problem Depression, major, recurrent, moderate 296.32 Active Problem Insulin dose changed V58.69 Active Problem Unspecified gastritis and ga stroduodenitis without mention of hemorrhage 535.50 Active Problem Nondependent alcohol abuse, unspecified drunkenness 30 5.00 Active Problem Other and unspecified hyperlipidemia 272.4 Active Problem 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 Problem 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 Problem Cellulitis and abscess of leg, except foot 682.6 Active Problem 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 2 tablets Sertraline HCl [facility] [address]-79 100 MG Orally Once a day Jul 10 015 2 tablets Cyclobenzaprine HCl [facility] [address]-34 10 MG Orally 2 times a d ay Oct 08, 2015 April 05, 2016 1 tablet Pepcid [facility] [address]-24 20 mg Aug 28, 2014 1 tab let by Oral route 2 times per day Depakote [facility] [address]-75 500 mg Aug 28, 2014 candy e 1 tablet (500 mg) by oral route 2 times per day trazodone [facility] [address]-51 100 mg Aug 28, 2014 1 Tablet 1 time per day at night Enalapril Maleate [facility] [address]-58 10 MG Once a day Aug 28, 2014 1 tablet NovoLog Mix 70/30 Flexpen [facility] [address]-79 (70-30 ) 100 UNIT/ML Subcutaneous 2 times a day Sep 08, 2015 24 units Simvastatin [facility] [address]-81 20 mg Aug 28, 2014 t kobe 1 tablet (20 mg) by oral route once daily in the evening Procedures Procedure Coding System Code Date MICROALBUMIN, SEMIQUANT CPT-4 48414 Oct 08, 2015 ASSAY OF URINE CREATININE CPT-4 27048 Oct GLYCATED HEMOGLOBIN TEST CPT-4 08373 Oct 08, 2015 Office Visit, Est Pt., Level 3 CPT-4 57210 D 2014 MICROALBUMIN, QUANTITATIVE CPT-4 20812 Oct Vital Signs Date/Time: Oct 08, 2015 Temperature 98.0 F Weight 155 lbs Height 67 in BMI 24.27 Index Blood Pressure Diastolic 80 mmHg Blood Pressure Systolic 128 mmHg Cardiac Monitoring Heart Rate 98 bpm Results No Known Results Summary Purpose eClinicalWorks Submission
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
--- OUTSIDE RECORDS SUMMARY | 2019-11-01 14:58 | XMS REPORT ---
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 Name Role Phone GREGG MERCHANT CP Unavailable Allergies No Known Allergies Problems Problem Type Condition Code Onset Dates Condition Statu s Problem Cough 786.2 Active Problem Urinary tract infection, site not specified 599.0 Active Problem Acute sinusitis, unspecified 461.9 Active Problem Depression, major, recurrent, moderate 296.32 Active Problem Need for prophylactic vaccination and inoculation, Inf luenza V04.81 Active Problem Insulin dose changed V58.69 Active Problem Spasm of muscle 728.85 Active Problem Unspecified hereditary and idiopathic peripheral neuro chantal 356.9 Active Problem Diabetes type 2, uncontrolled E11.65 Active Problem Diabetes mellitus without me ntion [...] without mention of hemorrhage 535.50 Active Problem 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
--- OUTSIDE RECORDS SUMMARY | 2019-11-01 14:58 | XMS REPORT ---
Author Author Angelique GAXIOLA [facility] [employer] Address Unknown Phone Unavailable Care Team Providers Care Bottom Pounder Cement Shoes Name Role Phone MARIBEL GAXIOLA CP Unavailable Allergies No Known Allergies Problems Problem Type Condition Code Onset Dates Condition Statu s Problem Cellulitis and abscess of leg, except foot 682.6 Active Problem Acute sinusitis, unspecified 461.9 Active Problem Cough 786.2 Active Problem Insulin dose changed V58.69 Active Problem Spasm of muscle 728.85 Active Problem Insulin long-term use V58.67 Active Problem Unspecified hereditary and idiopathic peripheral neuro chantal 356.9 Active Problem Other specified disease of sebaceous glands 706.8 Active Problem Depression, major, recurrent, moderate 296.32 Active Problem Lumbago 724.2 Active Problem Urinary tract infection, site not specified 599.0 Active Problem Multiple and unspecified ope n wound of lower limb, without mention of complication 894.0 Active Problem Diabetes mellitus without me ntion of complication, type II or unspecified type, not stated as uncontrolled 250.00 Active Problem Other abnormal glucose 790.29 Activ e Problem Other and unspecified hyperlipidemia 272.4 Active Problem Need for prophylactic vaccination and inoculation, Inf luenza V04.81 Active Problem Plantar fascial fibromatosis 728.71 Active Problem Nondependent alcohol abuse, unspecified drunkenness 30 5.00 Active Problem 

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
--- OUTSIDE RECORDS SUMMARY | 2019-11-01 14:58 | XMS REPORT ---
Author Author Angelique GAXIOLA Organization [employer] Address Unknown Phone Unavailable Care Team Providers Care Chemical Waste Management Technician Name Role Phone MARIBEL GAXIOLA CP Unavailable Allergies No Known Allergies Problems Problem Type Condition ICD-9 Code Onset Dates Condition Statu s Problem [...]
--- OUTSIDE RECORDS SUMMARY | 2019-11-01 14:58 | XMS REPORT ---
Author Author Angelique LAMAS Organization [employer] Address Unknown Phone Unavailable Care Team Providers Care Cylinder Steamer Name Role Phone THELMA LAMAS CP Unavailable Allergies No Known Allergies Problems [...] type, not stated as uncontrolled 250.00 Active Assessment Depression, major, recurrent, moderate 296.32 Active Problem Depression, major, recurrent, moderate 296.32 [...] Medications Procedures Procedure Coding System Code Date Psych diagnostic evaluation, established patient CPT-4 05686 Jul 10, 2015 Results No Known Results Summary Purpose [employer] Submission
--- OUTSIDE RECORDS SUMMARY | 2019-11-01 14:58 | XMS REPORT ---
Author Author Angelique MERCHANT Organization [employer] Address Unknown Phone Unavailable Care Team Providers Care Parking Supervisor Name Role Phone GREGG MERCHANT CP Unavailable Allergies No Known Allergies Problems Problem Type Condition Code Onset Dates Condition Statu s Problem Other specified disease of sebaceous glands [...] 270.6 Active Problem Hypopotassemia 276.8 Active Medications No Known Medications Results No Known Results Summary Purpose [employer] Submission
--- OUTSIDE RECORDS SUMMARY | 2019-11-01 14:58 | XMS REPORT ---
Author Author Angelique MERCHANT Organization [employer] Address Unknown Phone Unavailable Care Team Providers Care Clip On Sunglasses Inspector Name Role Phone GREGG MERCHANT CP Unavailable [...]
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
--- OUTSIDE RECORDS SUMMARY | 2019-11-01 14:58 | XMS REPORT ---
Author Author Angelique MERCHANT [facility] eClinicalWorks Address Unknown Phone Unavailable Care Team Providers Care Np Name Role Phone GREGG MERCHANT CP Unavailable [...] Instructions Start Date End Date Status Dosage NovoLog Flexpen [facility] [address]-99 100 UNIT/ML Subcutaneous January08-16-15 tid with meals Levemir FlexTouch [facility] [address]-75 100 UNIT/ML Subcutaneo us at bedtime February 02, 2016 25 units Results No Known Results Summary Purpose eClinicalWorks Submission
--- OUTSIDE RECORDS SUMMARY | 2019-11-01 14:58 | XMS REPORT ---
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 Assessment Dysthymia 300.4 Active Problem Hypopotassemia 276.8 Active Problem Cellulitis and abscess of leg, except foot 682.6 Active Problem 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 Problem Multiple and unspecified ope n wound of lower limb, without mention of complication 894.0 Active Problem Diabetes mellitus without me ntion of complication, type II or unspecified type, not stated as uncontrolled 250.00 Active Problem Other specified disease of sebaceous glands 706.8 Active Assessment Lower back pain 724.2 Active Problem Depression, major, recurrent, moderate 296.32 Active Assessment Diabetes mellitus without me ntion of complication, type II or unspecified type, not stated as uncontrolled 250.00 Active Problem Acute sinusitis, unspecified 461.9 Active [...] Problem Other and unspecified hyperlipidemia 272.4 Active Medications Medication Code System Code Instructions Start Date End Date Status Dosage MetFORMIN HCl ER [facility] [address]-94 500 MG Orally O nce a day for 4 days, 1bid daily X 4 days, 1 in AM, 2 PM X 4 days, 2 AM and 2 PM Jul 10, 2015 1 tablet with evening meal Macrobid [facility] [address]-77 100 MG Orally every 12 hrs JulJul 17, 2015 1 capsule with food Sertraline HCl [facility] [address]-67 100 MG Orally Once a day X4 days then 1 tab Jul 10, 2015 0.5 tablet Procedures Procedure Coding System Code Date GLYCATED HEMOGLOBIN TEST CPT-4 38724 Jul COMPLETE CBC W/AUTO DIFF WBC CPT-4 58750 Jul URINALYSIS, AUTO, W/O SCOPE CPT-4 09261 Jul 10, 2015 LIPID PANEL CPT-4 64916 Jul 10, 2015 COMPREHEN METABOLIC PANEL CPT-4 18506 Jul Office Visit, Est Pt., Level 3 CPT-4 27663 S ept 2014 VENIPUNCT, ROUTINE* CPT-4 05921 Jul 10, 201 5 Vital Signs Date/Time: Jul 10, 2015 Temperature 98.4 F Weight 156.7 lbs Height 67 in BMI 24.54 Index Blood Pressure Diastolic 80 mmHg Blood Pressure Systolic 132 mmHg Cardiac Monitoring Heart Rate 88 bpm Results Name Result Date Reference Range Unit Abnormali ty Flag A1C (IN HOUSE) CBC Summary Purpose eClinicalWorks Submission
== END 2019-10-08 08:42 | disposition home or self-care (01) ==
LOC: EDUNIT# 05:09 → ER 05:11
DX: F10.129 Alcohol abuse with intoxication, unspecified (principal); F17.210 Nicotine dependence, cigarettes, uncomplicated; I10 Essential (primary) hypertension; E78.00 Pure hypercholesterolemia, unspecified; G40.909 Epilepsy, unspecified, not intractable, without status epilepticus; K21.9 Gastro-esophageal reflux disease without esophagitis; E11.9 Type 2 diabetes mellitus without complications; F41.9 Anxiety disorder, unspecified; F32.9 Major depressive disorder, single episode, unspecified; Z80.1 Family history of malignant neoplasm of trachea, bronchus and lung; Z80.0 Family history of malignant neoplasm of digestive organs; Z82.49 Family history of ischemic heart disease and other diseases of the circulatory system; Z87.440 Personal history of urinary (tract) infections; Z90.49 Acquired absence of other specified parts of digestive tract; Z98.51 Tubal ligation status; Z91.041 Radiographic dye allergy status; Z88.6 Allergy status to analgesic agent; W01.198A Fall on same level from slipping, tripping and stumbling with subsequent striking against other object, initial encounter; W18.2XXA Fall in (into) shower or empty bathtub, initial encounter; Y92.009 Unspecified place in unspecified non-institutional (private) residence as the place of occurrence of the external cause
CPT/HCPCS: 36415; 70450; 71045; 72125; 72170; 80053; 80306; 80320; 81000; 82550; 83735; 85025; 96360

== ENCOUNTER → 2020-08-29 | Outpatient (CLI) | payer MEDICARE, MEDICAID ==
[~2020-08-29] MED LIST changes: +ACET325T38 PO; +ACHD5005 PO; +ALPR.25T PO; -ALPR0.254 PO; +CIPR500T4 PO; +DICL75TA2 PO; +DIVA-76 PO; +FAMO20TA25 PO; +FURO-125 PO; +GABA300C PO; +GLIP10TA13 PO; +MAGN400T39 PO; +NALO4SPR NS; +NAPH15DR56 OU; -PANT40TA3 PO; +PANT40TA52 PO; +PHEN-639 PO; +RT-ALBUINH PO; +SIMV20TA26 PO; +SUCR1TAB PO; -TRAM50TA2 PO; -TRAZ-190 PO; +TRAZ-227 PO; +TRM50T PO
--- NOTE | 2020-08-29 11:26 | Diagnostic Imaging Report ---
INDICATION: Routine screening. Comparison is made with prior mammogram 02/18/2015. 2-D and 3-D bilateral screening mammography was performed with CAD. Scattered fibroglandular densities are identified bilaterally. Benign parenchymal and vascular calcifications are noted bilaterally. Nodular densities in both breasts appear stable. No spiculated mass or malignant appearing microcalcifications are seen. Axillae are unremarkable. IMPRESSION: BI-RADS Category 2 No mammographic features suspicious for malignancy are identified. ACR BI-RADS Category 2: Benign findings. Result letter will be mailed to the patient. Note: At least 10% of breast cancer is not imaged by mammography. Dictated by: Dictated on workstation # [id number]
== END ==
LOC: RAD 09:00
PROVIDERS: ATTEND Nurse Practitioner Community Health
DX: Z12.31 Encounter for screening mammogram for malignant neoplasm of breast (principal)
CPT/HCPCS: 77063; 77067

== ENCOUNTER → 2020-09-18 | Outpatient (CLI) | payer MEDICARE, MEDICAID ==
--- NOTE | 2020-09-18 13:43 | Diagnostic Imaging Report ---
INDICATION: Pain and swelling in the lower back. COMPARISON: CT abdomen and pelvis from 05/31/2020. TECHNIQUE: Grayscale and color Doppler imaging in the midline of the lower back was performed. FINDINGS: In this region, there is a circumscribed solid mass that is of mixed echogenicity, but predominantly similar to that of surrounding fat. This measures approximately 5.3 x 4.9 x 1.9 cm. This corresponds to an area of previously noted subcutaneous fat with stranding on CT could represent some areas of resolving hematoma and/or lipomatous tumor. IMPRESSION: 1. There are concerns likely corresponds to an area of lipoma with potential hematoma from fall. If there is clinically a palpable mass that continues to enlarge, then MRI of the lumbar spine without and with IV contrast utilizing the tumor protocol and attention to mass would be advised. Dictated by: Dictated on workstation # [id number]
== END ==
LOC: RAD 10:39
PROVIDERS: ATTEND Nurse Practitioner Community Health
DX: L98.9 Disorder of the skin and subcutaneous tissue, unspecified (principal)
CPT/HCPCS: 76999

== ENCOUNTER 2020-10-17 05:38 | Outpatient (RCR) | payer MEDICARE, MEDICAID ==
[~2020-10-17] VITALS: Ht 170 cm; Wt 70.4 kg
[~2020-10-17 05:38] MED LIST changes: +CETI10TA17 PO; +LISI-556 PO
== END 2020-10-17 09:33 | disposition home or self-care (01) ==
LOC: PREOP 05:38
PROVIDERS: ATTEND Surgery
DX: Z01.812 Encounter for preprocedural laboratory examination (principal); Z20.828 Contact with and (suspected) exposure to other viral communicable diseases; Z86.010 Personal history of colon polyps
CPT/HCPCS: 87635

== ENCOUNTER 2020-12-10 05:38 | Outpatient (RCR) | payer MEDICARE, MEDICAID ==
[~2020-12-10] VITALS: Ht 170.2 cm; Wt 71.8 kg
[2020-12-10] MEDS ORDERED: POTA99TA21 PO (12:20)
[2020-12-10] MEDS ORDERED: SPIR25TA PO (12:20)
== END 2020-12-10 14:07 | disposition home or self-care (01) ==
LOC: PREOP 05:38
PROVIDERS: ATTEND Specialist
DX: Z01.812 Encounter for preprocedural laboratory examination (principal); H25.9 Unspecified age-related cataract; Z20.822 Contact with and (suspected) exposure to COVID-19
CPT/HCPCS: 87635

== ENCOUNTER 2020-12-12 08:56 | Day surgery (SDC) | payer MEDICARE, MEDICAID ==
[~2020-12-12] VITALS: Ht 170 cm; Wt 71.8 kg
[~2020-12-12 08:56] MED LIST changes: +POTA99TA21 PO; +SPIR25TA PO
[2020-12-12 09:00] VITALS: BP 145/82
[2020-12-12] MEDS ORDERED: MOXIFLOXACIN OPHTH SOLN 5 MG/ML 0.3 ML SYRINGE OP ONE (09:15)
[2020-12-12] MEDS ORDERED: POVIDONE (BETADINE) OPHTH SOLN 5% 30 ML OP ONE (09:15)
[2020-12-12] MEDS ORDERED: LIDOCAINE PF 1% 2 ML VIAL IR PRN (09:15)
[2020-12-12] MEDS ORDERED: TIMOLOL MALEATE 0.5% 5 ML (TIMOPTIC) BTL OU PRN (09:15)
[2020-12-12] MEDS: TETRACAINE 0.5% OPHTH SOLN 4 ML BTL (SINGLE DOSE ONLY) OU PRN ×4 (09:24→09:43)
[2020-12-12] MEDS: PHENYLEPHRINE 10% OPHTH (NEO-SYN) 5 ML BTL OU SCH ×3 (09:33→09:43)
[2020-12-12] MEDS: TROPICAMIDE 1% OPH SOLN (MYDRIACYL) 15 ML BTL OP SCH ×3 (09:33→09:43)
[2020-12-12] MEDS ORDERED: MIDAZOLAM 2 MG/2 ML (VERSED) VIAL ONE (09:53)
--- NOTE | 2020-12-12 09:53 | Ophthalmologist Pre-Op Note ---
Pre-Operative Progress Note H&P Reviewed The H&P was reviewed, patient examined and no changes noted. Date H&P Reviewed: Dec 12, 2020 Time H&P Reviewed: 09:53 Pre-Op Dx Cataract, Left Eye ELADIO HARVEY MD Dec 12, 2020 09:53
[2020-12-12 10:15] VITALS: BP 157/93
--- NOTE | 2020-12-12 10:16 | Ophthalmology Operative Report ---
Cataract removal/placement IOL PREOPERATIVE DIAGNOSIS: Cataract Left Eye POSTOPERATIVE DIAGNOSIS: Cataract Left Eye PROCEDURE: Cataract removal and placement of posterior chamber implant, left eye SURGEON: Damian Harvey ANESTHESIA: Topical with sedation COMPLICATIONS: None ESTIMATED BLOOD LOSS: Minimal DESCRIPTION OF PROCEDURE: After proper informed consent was obtained, the patient, a [id number] female, was taken to the Operating Room and the left eye was anesthetized with tetracaine. The left eye was then prepped and draped in the usual manner. A wire lid speculum was placed. A paracentesis was made at the left hand position. Preservative free lidocaine was injected into the anterior chamber followed by viscoelastic. A clear corneal incision was made in the temporal position. A capsulorrhexis was preformed and the central nuclear and cortical material were removed. The posterior capsule was polished and an Aidan 21.0 AU00T0 was placed into the capsular bag. The residual viscoelastic was aspirated and balanced saline solution was injected into the anterior chamber. Moxifloxacin was injected into the anterior chamber. The wound was checked and found to be water tight. The patient tolerated the procedure well without complications. DAMIAN HARVEY MD Dec 12, 2020 10:16
[2020-12-12] MEDS ORDERED: acetaZOLAMIDE ER 500 MG CAP (DIAMOX SEQUELS) PO ONE (10:30)
--- NOTE | 2020-12-12 11:08 | Anesthesia-General Post-Op ---
MAC Patient Condition Mental Status/LOC: Same as Preop Cardiovascular: Satisfactory Nausea/Vomiting: Absent Respiratory: Satisfactory Pain: Controlled Complications: Absent Post Op Complications Complications None Follow Up Care/Instructions Patient Instructions None needed. Anesthesiology Discharge Order Discharge Order Patient is doing well, no complaints, stable vital signs, no apparent adverse anesthesia problems. No complications reported per nursing. MARISA SZYMANSKI CRNA Dec 12, 2020 11:08
== END 2020-12-12 10:25 ==
LOC: SDC 08:56
PROVIDERS: ATTEND Specialist
DX: H25.12 Age-related nuclear cataract, left eye (principal); I10 Essential (primary) hypertension; J45.909 Unspecified asthma, uncomplicated; E11.9 Type 2 diabetes mellitus without complications; M19.90 Unspecified osteoarthritis, unspecified site; E78.00 Pure hypercholesterolemia, unspecified; F17.210 Nicotine dependence, cigarettes, uncomplicated; Z79.899 Other long term (current) drug therapy; Z88.5 Allergy status to narcotic agent; Z91.041 Radiographic dye allergy status; Z80.1 Family history of malignant neoplasm of trachea, bronchus and lung; Z80.8 Family history of malignant neoplasm of other organs or systems
CPT/HCPCS: 66984; 82962; V2632

== ENCOUNTER 2020-12-23 07:49 | Outpatient (RCR) | payer MEDICARE, MEDICAID ==
[~2020-12-23 07:49] MED LIST changes: -CIPR500T4 PO; +CIPR500T5 PO; -LISI-552 PO; -LISI-556 PO; +LISI-729 PO; +LISI20TA26 PO; +SERT-414 PO
== END 2021-03-23 | disposition home or self-care (01) ==
LOC: PREOP 07:49
PROVIDERS: ATTEND Specialist
DX: Z01.818 Encounter for other preprocedural examination (principal)

== ENCOUNTER 2020-12-26 09:19 | Day surgery (SDC) | payer MEDICARE, MEDICAID ==
[~2020-12-26] VITALS: Ht 170 cm; Wt 71.8 kg
[2020-12-26 09:10] VITALS: BP 146/84
[2020-12-26] MEDS ORDERED: TROPICAMIDE 1% OPH SOLN (MYDRIACYL) 15 ML BTL OU PRN (09:30)
[2020-12-26] MEDS ORDERED: TETRACAINE 0.5% OPHTH SOLN 4 ML BTL (SINGLE DOSE ONLY) OU PRN (09:30)
[2020-12-26] MEDS ORDERED: PHENYLEPHRINE 10% OPHTH (NEO-SYN) 5 ML BTL OU PRN (09:30)
--- NOTE | 2020-12-26 09:55 | Ophthalmologist Pre-Op Note ---
Pre-Operative Progress Note H&P Reviewed The H&P was reviewed, patient examined and no changes noted. Date H&P Reviewed: Dec 26, 2020 Time H&P Reviewed: 09:55 Pre-Op Dx Secondary Cataract, Right Eye ELADIO HARVEY MD Dec 26, 2020 09:55
--- NOTE | 2020-12-26 10:26 | Ophthalmology Operative Report ---
YAG Capsulotomy PREOPERATIVE DIAGNOSIS: Secondary Cataract Right Eye POSTOPERATIVE DIAGNOSIS: Secondary Cataract Right Eye PROCEDURE: YAG Capsulotomy, right eye SURGEON: Damian Harvey ANESTHESIA: Topical anesthesia COMPLICATIONS: None ESTIMATED BLOOD LOSS: Minimal DESCRIPTION OF PROCEDURE: After proper informed consent was obtained, the patient's, a 60 female, right eye received one drop of Tropicamide and one drop of Tetracaine. The patient was then placed at the YAG laser and using a power of [ 3.3] millijoules and [27 ] bursts were used to fashion a central capsulotomy. The patient tolerated the procedure well without complications. DAMIAN HARVEY MD Dec 26, 2020 10:26
== END 2020-12-26 10:05 ==
LOC: SDC 09:19
PROVIDERS: ATTEND Specialist
DX: H26.491 Other secondary cataract, right eye (principal); J45.909 Unspecified asthma, uncomplicated; N30.90 Cystitis, unspecified without hematuria; E11.9 Type 2 diabetes mellitus without complications; M19.90 Unspecified osteoarthritis, unspecified site; F32.9 Major depressive disorder, single episode, unspecified; E78.00 Pure hypercholesterolemia, unspecified; F17.200 Nicotine dependence, unspecified, uncomplicated; Z91.041 Radiographic dye allergy status; Z88.8 Allergy status to other drugs, medicaments and biological substances; Z79.84 Long term (current) use of oral hypoglycemic drugs; Z79.2 Long term (current) use of antibiotics; Z79.899 Other long term (current) drug therapy; Z98.51 Tubal ligation status; Z80.1 Family history of malignant neoplasm of trachea, bronchus and lung; Z80.0 Family history of malignant neoplasm of digestive organs; Z80.8 Family history of malignant neoplasm of other organs or systems; Z82.3 Family history of stroke

== ENCOUNTER 2021-02-04 09:51 | Outpatient (RCR) | payer MEDICARE, MEDICAID ==
[2021-02-04 11:09] LABS: BASOPHILS # (AUTO) 0.1 10^3/uL (0.0-0.1); BASOPHILS % (AUTO) 1 % (0-10); EOSINOPHILS # (AUTO) 0.1 10^3/uL (0.0-0.3); EOSINOPHILS % (AUTO) 2 % (0-10); HEMATOCRIT 46 % (35-52); HEMOGLOBIN 16.1 g/dL (11.5-16.0); LYMPHOCYTES # (AUTO) 1.2 10^3/uL (1.0-4.0); LYMPHOCYTES % (AUTO) 15 % (12-44); MEAN CORPUSCULAR HEMOGLOBIN 35 pg (25-34); MEAN CORPUSCULAR HGB CONC 35 g/dL (32-36); MEAN CORPUSCULAR VOLUME 100 fL (80-99); MEAN PLATELET VOLUME 12.6 fL (9.0-12.2); MONOCYTES # (AUTO) 0.5 10^3/uL (0.0-1.0); MONOCYTES % (AUTO) 6 % (0-12); NEUTROPHILS # (AUTO) 5.7 10^3/uL (1.8-7.8); NEUTROPHILS % (AUTO) 75 % (42-75); PLATELET COUNT 103 10^3/uL (130-400); WHITE BLOOD COUNT 7.6 10^3/uL (4.3-11.0)
== END 2021-05-05 | disposition home or self-care (01) ==
LOC: ONC 09:51
PROVIDERS: ATTEND Internal Medicine Hematology & Oncology
DX: D75.89 Other specified diseases of blood and blood-forming organs (principal); D69.3 Immune thrombocytopenic purpura; E78.5 Hyperlipidemia, unspecified; E11.9 Type 2 diabetes mellitus without complications; Z72.0 Tobacco use; Z20.822 Contact with and (suspected) exposure to COVID-19
CPT/HCPCS: 82607; 82746; 83921; 85025; G0463; 99214

== ENCOUNTER 2021-02-11 18:53 | Emergency (ER) | payer MEDICARE, MEDICAID ==
[~2021-02-11] VITALS: Ht 170.2 cm; Wt 70.3 kg
[2021-02-11 19:33] LABS: BASOPHILS % (AUTO) 1 % (0-10); EOSINOPHILS # (AUTO) 0.1 10^3/uL (0.0-0.3); EOSINOPHILS % (AUTO) 2 % (0-10); MEAN CORPUSCULAR VOLUME 103 fL (80-99); MONOCYTES # (AUTO) 0.5 10^3/uL (0.0-1.0)
[2021-02-11 19:35] LABS: HEMATOCRIT 41 % (35-52); HEMOGLOBIN 14.2 g/dL (11.5-16.0); LYMPHOCYTES % (AUTO) 31 % (12-44); MEAN CORPUSCULAR HEMOGLOBIN 35 pg (25-34); MEAN CORPUSCULAR HGB CONC 34 g/dL (32-36); MEAN PLATELET VOLUME 13.9 fL (9.0-12.2); MONOCYTES % (AUTO) 8 % (0-12); NEUTROPHILS # (AUTO) 3.6 10^3/uL (1.8-7.8); NEUTROPHILS % (AUTO) 58 % (42-75); PLATELET COUNT 83 10^3/uL (130-400); WHITE BLOOD COUNT 6.3 10^3/uL (4.3-11.0)
[2021-02-11 19:48] LABS: PROTHROMBIN TIME PATIENT 13.1 SEC (12.2-14.7)
--- NOTE | 2021-02-11 19:53 | ED General ---
General Chief Complaint: Respiratory Problems Stated Complaint: SOB / ANXIETY Nursing Triage Note: PT TO ROOM 05 [facility] WITH C/O SOB AND ANXIETY. PT REPORTS HAVING A LOT OF STRESSORS IN HER LIFE AND HER ANXIETY AND SEASONAL ALLERGIES HAVE BEEN WORSE RECENTLY. Nursing Sepsis Screen: No Definite Risk Source of Information: Patient, EMS, Old Records Exam Limitations: No Limitations History of Present Illness Date Seen by Provider: Feb 11, 2021 Time Seen by Provider: 18:54 Initial Comments This 60-year-old woman presents to the emergency room via EMS with complaints of cough, shortness of breath, pain with inspiration, hoarse voice, and myalgias for about 3 days. She reports receiving both of her COVID-19 vaccine doses more than 2 weeks ago. She reports significant problems with seasonal allergies in the spring. She is also a smoker and has asthma. She is tearful and distressed. She has been taking care of her ill brother recently in addition to having her own issues. She reports having eye infection followed by cataract surgery in December. She has been using an inhaler at home which has not been very helpful. She has had alternating constipation and diarrhea with lower abdominal pain. Patient states she has [facility] She does not know all the details of why this referral was made but she does need to follow-up. Review of her chart does show a past history of thrombocytopenia. Allergies and Home Medications Allergies Coded Allergies: Iodinated Contrast Media (Verified Allergy, Mild, HIVES, 12/12/20) aspirin (Verified Adverse Reaction, Mild, NAUSEA, 12/12/20) Home Medications Acetaminophen 325 Mg Tablet, 650 MG PO Q8H PRN for PAIN-MILD (1-4), (Reported) Albuterol Sulfate 1 Puff Puff, 2 PUFF PO QID PRN for SHORTNESS OF BREATH, (Reported) Cetirizine HCl 10 Mg Tablet, 10 MG PO DAILY, (Reported) Cyclobenzaprine HCl 10 Mg Tablet, 10 MG PO BID PRN for MUSCLE SPASMS, (Reported) Famotidine 20 Mg Tablet, 20 MG PO BID, (Reported) Glipizide 10 Mg Tablet, 10 MG PO BID, (Reported) Lisinopril 5 Mg Tablet, 5 MG PO DAILY, (Reported) Magnesium Oxide 400 Mg Tablet, 400 MG PO DAILY, (Reported) Naphazo HCl/Hpm/Ps 80/Zn Sulf 15 Ml Drops, 2 DROPS OU PRN PRN for DRY EYES, (R eported) Pantoprazole Sodium 40 Mg Tablet.dr, 40 MG PO DAILY, (Reported) Potassium Gluconate 99 Mg Tablet, 99 MG PO DAILY, (Reported) Sertraline HCl 100 Mg Tablet, 200 MG PO HS, (Reported) TAKES 2 (100 MG) TABLETS Simvastatin 20 Mg Tablet, 20 MG PO DAILY Prescribed by: DIANA TAYLOR on 06/05/20 1208 Spironolactone 25 Mg Tablet, 25 MG PO DAILY, (Reported) Trazodone HCl 100 Mg Tablet, 100 MG PO HS, (Reported) Patient Home Medication List Home Medication List Reviewed: Yes Review of Systems Review of Systems Constitutional: see HPI, malaise EENTM: see HPI Respiratory: see HPI Cardiovascular: see HPI Gastrointestinal: see HPI, constipation, diarrhea Genitourinary: see HPI Musculoskeletal: see HPI Skin: no symptoms reported Psychiatric/Neurological: See HPI Hematologic/Lymphatic: No Symptoms Reported Immunological/Allergic: no symptoms reported Past Rkxoaiw-Nvthpc-Amlgfk Hx Past Med/Social Hx: Reviewed Nursing Past Med/Soc Hx Patient Social History Alcohol Use: Occasionally Uses Number of Drinks Today: AA Alcohol Beverage of Choice: Beer Smoking Status: Current Everyday Smoker Type Used: Cigarettes 2nd Hand Smoke Exposure: Yes Recent Infectious Disease Expo: No Recent Hopitalizations: No Immunizations Up To Date Tetanus Booster (TDap): Less than 5yrs Date of Pneumonia Vaccine: Aug 15, 2017 Date of Influenza Vaccine: Aug 11, 2020 Seasonal Allergies Seasonal Allergies: Yes Past Medical History Surgeries: Yes Appendectomy, Tonsillectomy, Tubal Ligation Respiratory: Yes Cardiac: Yes High Cholesterol, Hypertension 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) Seizure Disorder Reproductive Disorders: 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 Sexually Transmitted Disease: No HIV/AIDS: No Genitourinary: Yes UTI-Chronic Gastrointestinal: Yes Gastroesophageal Reflux, Chronic Constipation Musculoskeletal: Yes Arthritis, Spasms Endocrine: Yes Diabetes, Insulin dep, Lupus HEENT: Yes (GLASSES) Loss of Vision: Bilateral Hearing Impairment: Denies Cancer: No Psychosocial: Yes Anxiety, Depression Integumentary: No Blood Disorders: Yes (Thrombocytopenia) Adverse Reaction/Blood Tranf: No (N/A) Family Medical History Alzheimer's disease 19 MOTHER Bone cancer 19 FATHER, Onset:63 FH: lung cancer 19 FATHER, Onset:63 G8 BROTHER, Onset:56 FH: stroke 19 FATHER Hypertension 19 MOTHER Myocardial infarction G8 BROTHER Rectal cancer G8 BROTHER Physical Exam Vital Signs Vital Signs - First Documented 02/11/21 02/11/21 18:57 22:11 Temp 36.4 Pulse 104 Resp 18 B/P (MAP) 121/96 (104) Pulse Ox 98 O2 Delivery Room Air Capillary Refill : Less Than 3 Seconds Height, Weight, BMI Height: 5'7.00" Weight: 155lbs. 6.4oz. 70.762559tz; 24.00 BMI Method:Stated General Appearance: WD/WN, Mild Distress (Tearful, Crying) HEENT: PERRL/EOMI, Normal ENT Inspection, Pharynx Normal, Other (Hoarse voice) Neck: Normal Inspection Respiratory: Lungs Clear, Normal Breath Sounds, No Accessory Muscle Use, No Respiratory Distress Cardiovascular: Regular Rate, Rhythm, No Edema, No Murmur Gastrointestinal: Normal Bowel Sounds, Soft, Tenderness (Mild tenderness in the lower abdomen) Extremity: Normal Inspection, No Pedal Edema, Other (generalized muscle tend erness) Neurologic/Psychiatric: Alert, Oriented x3, No Motor/Sensory Deficits, 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 Norm as Tested, Other (tearful) Progress/Results/Core Measures Suspected Sepsis Recent Fever Within 48 Hours: No Infection Criteria Present: None New/Unexplained Altered Menta: No Sepsis Screen: No Definite Risk SIRS Temperature: Pulse: 104 Respiratory Rate: 18 Laboratory Tests 02/11/21 19:07: White Blood Count 6.3 Blood Pressure 121 /96 Mean: 104 Laboratory Tests 02/11/21 19:07: Creatinine 0.82, INR Comment 1.0, Platelet Count 83L, Total Bilirubin 0.4 Results/Orders Lab Results Laboratory Tests Test 02/11/21 19:06 02/11/21 19:07 02/11/21 19:45 Range/Units Coronavirus 2019 (ELSY) Negative Negative White Blood Count 6.3 4.3-11.0 10^3/uL Red Blood Count 4.02 3.80-5.11 10^6/uL Hemoglobin 14.2 11.5-16.0 g/dL Hematocrit 41 35-52 % Mean Corpuscular Volume 103 H 80-99 fL Mean Corpuscular Hemoglobin 35 H 25-34 pg Mean Corpuscular Hemoglobin Concent 34 32-36 g/dL Red Cell Distribution Width 12.0 10.0-14.5 % Platelet Count 83 L 130-400 10^3/uL Mean Platelet Volume 13.9 H 9.0-12.2 fL Immature Granulocyte % (Auto) 1 % Neutrophils (%) (Auto) 58 42-75 % Lymphocytes (%) (Auto) 31 12-44 % Monocytes (%) (Auto) 8 0-12 % Eosinophils (%) (Auto) 2 0-10 % Basophils (%) (Auto) 1 0-10 % Neutrophils # (Auto) 3.6 1.8-7.8 10^3/uL Lymphocytes # (Auto) 2.0 1.0-4.0 10^3/uL Monocytes # (Auto) 0.5 0.0-1.0 10^3/uL Eosinophils # (Auto) 0.1 0.0-0.3 10^3/uL Basophils # (Auto) 0.0 0.0-0.1 10^3/uL Immature Granulocyte # (Auto) 0.0 0.0-0.1 10^3/uL Prothrombin Time 13.1 12.2-14.7 SEC INR Comment 1.0 0.8-1.4 Activated Partial Thromboplast Time 26 24-35 SEC D-Dimer 0.77 H 0.00-0.49 UG/ML Sodium Level 142 135-145 MMOL/L Potassium Level 3.0 L 3.6-5.0 MMOL/L Chloride Level 109 H 98-107 MMOL/L Carbon Dioxide Level 17 L 21-32 MMOL/L Anion Gap 16 H 5-14 MMOL/L Blood Urea Nitrogen 11 7-18 MG/DL Creatinine 0.82 0.60-1.30 MG/DL Estimat Glomerular Filtration Rate > 60 BUN/Creatinine Ratio 13 Glucose Level 278 H 70-105 MG/DL Calcium Level 7.6 L 8.5-10.1 MG/DL Corrected Calcium 8.2 L 8.5-10.1 MG/DL Magnesium Level 1.8 1.6-2.4 MG/DL Total Bilirubin 0.4 0.1-1.0 MG/DL Aspartate Amino Transf (AST/SGOT) 48 H 5-34 U/L Alanine Aminotransferase (ALT/SGPT) 26 0-55 U/L Alkaline Phosphatase 127 40-136 U/L Total Creatine Kinase 48 29-168 U/L Myoglobin 27.6 10.0-92.0 NG/ML Troponin I < 0.028 <0.028 NG/ML C-Reactive Protein High Sensitivity 1.73 H 0.00-0.50 MG/DL B-Type Natriuretic Peptide 67.6 <100.0 PG/ML Total Protein 6.3 L 6.4-8.2 GM/DL Albumin 3.3 3.2-4.5 GM/DL Urine Color YELLOW Urine Clarity CLEAR Urine pH 6.0 5-9 Urine Specific [place] <=1.005 1.016-1.022 Urine Protein NEGATIVE NEGATIVE Urine Glucose (UA) 2+ H NEGATIVE Urine Ketones NEGATIVE NEGATIVE Urine Nitrite NEGATIVE NEGATIVE Urine Bilirubin NEGATIVE NEGATIVE Urine Urobilinogen 0.2 < = 1.0 MG/DL Urine Leukocyte Esterase NEGATIVE NEGATIVE Urine RBC (Auto) NEGATIVE NEGATIVE Urine RBC NONE /HPF Urine WBC NONE /HPF Urine Squamous Epithelial Cells NONE /HPF Urine Crystals NONE /LPF Urine Bacteria NEGATIVE /HPF Urine Casts NONE /LPF Urine Mucus NEGATIVE /LPF Urine Culture Indicated NO Micro Results Microbiology 02/11/21 Influenza Types A,B Antigen (OMARI) - Final, Complete My Orders Orders - CYNTHIA SAHU MD Cbc With Automated Diff (02/11/21 19:06) Comprehensive Metabolic Panel (02/11/21 19:06) Creatine Kinase (02/11/21 19:06) Hs C Reactive Protein (02/11/21 19:06) Magnesium (02/11/21 19:06) Troponin I (02/11/21 19:06) Ua Culture If Indicated (02/11/21 19:06) Ekg Tracing (02/11/21 19:06) Chest 1 View, Ap/Pa Only (02/11/21 19:06) Influenza A And B Antigens (02/11/21 19:06) Covid 19 Inhouse Test (02/11/21 19:06) Myoglobin Serum (02/11/21 19:10) Protime With Inr (02/11/21 19:10) Partial Thromboplastin Time (02/11/21 19:10) O2 (02/11/21 19:10) Monitor-Rhythm Ecg Trace Only (02/11/21 19:10) Ed Iv/Invasive Line Start (02/11/21 19:10) BNP (02/11/21 19:10) Fibrin Degradation Products (02/11/21 19:10) Albuterol Inhaler (Ventolin Hfa) (02/11/21 22:00) Potassium Cl 10meq/50ml Ivpb (Kcl 10 Meq (02/11/21 20:15) Ns Iv 1000 Ml (Sodium Chloride 0.9%) (02/11/21 20:15) Apixaban Tablet (Eliquis Tablet) (02/11/21 20:45) Prednisone Tablet (Deltasone Tablet) (02/11/21 21:00) Potassium Chloride (Tablet) (Klor Con Ta (02/11/21 22:00) Medications Given in ED Current Medications Medications Dose Ordered Sig/Paola Route Start Time Stop Time Status Last Admin Dose Admin Albuterol Sulfate 4 puffs with spacer RTQ4HR ONCE IH 02/11/21 22:00 02/11/21 22:01 DC 02/11/21 20:57 0.018 GM Apixaban 5 mg ONCE ONCE PO 02/11/21 20:45 02/11/21 20:46 DC 02/11/21 20:56 5 MG Potassium Chloride 40 meq ONCE ONCE PO 02/11/21 22:00 02/11/21 22:01 DC 02/11/21 22:07 40 MEQ Potassium Chloride 50 ml @ 50 mls/hr ONCE ONCE IV 02/11/21 20:15 02/11/21 21:14 DC 02/11/21 20:27 50 MLS/HR Prednisone 40 mg ONCE ONCE PO 02/11/21 21:00 02/11/21 21:01 DC 02/11/21 20:56 40 MG Vital Signs/I&O 02/11/21 02/11/21 18:57 22:11 Temp 36.4 Pulse 104 104 Resp 18 16 B/P (MAP) 121/96 (104) 118/77 Pulse Ox 98 O2 Delivery Room Air Room Air 02/12/21 00:00 Intake Total 1050 ml Balance 1050 ml Capillary Refill : Less Than 3 Seconds Blood Pressure Mean: 104 Progress Note #1: Time: 20:53 Progress Note Patient was briefly hypoxic and required a little bit of nasal cannula oxygen support. This resolved after albuterol inhaler. Labs revealed hypokalemia and potassium replacement was started by IV route. She was also hydrated with a liter of normal saline. D-dimer was obtained as patient is a smoker, was mildly tachycardic, and complained of pleuritic chest pain. D-dimer was slightly elevated. She cannot have IV contrast for a CT angiogram because of questionable life-threatening reaction to iodine during her hospitalization in [place] in 2002. As an alternative, we will obtain a VQ scan tomorrow morning. No evidence of bacterial infection was identified in work-up. Patient will be given a dose of prednisone 20 mg in the ER. We will start with low-dose prednisone as she is an insulin-dependent diabetic. Loratadine is also being added to the orders for her allergies. Sliding scale insulin is being added to the bridging orders. Eliquis is being given for anticoagulation until a VQ scan can be obtained. We will anticoagulate with caution as she has a history of thrombocytopenia. Platelets are currently 83 and she has no evidence of active bleeding. I discussed CODE STATUS with the patient. She requests DO NOT RESUSCITATE in regard to both CPR and intubation. Progress Note #2: Progress Note After patient was admitted she changed her mind and insisted on being discharged home. An outpatient VQ scan was scheduled for noon tomorrow and patient was given an order form. Dr. Taylor was updated. She complete 1 L NS bolus, KCl 10 mEq IV, and KCl 40 mEq orally. ECG Initial ECG Impression Date: Feb 11, 2021 Initial ECG Impression Time: 19:14 Initial ECG Rate: 97 Initial ECG Rhythm: Normal Sinus Comment Normal sinus rhythm with no ST elevation or depression. No abnormal intervals or axis deviation. Diagnostic Imaging Diagonstic Imaging: Xray Plain Films/CT/US/NM/MRI: chest Comments Chest x-ray reviewed by me and report reviewed. See report below: NAME: LYDIA CASTRO [facility] REC#: [id number] PT STATUS: REG ER : 1960 PHYSICIAN: CYNTHIA SAHU MD ADMIT DATE: 02/11/21/ER Signed Date of Exam:02/11/21 CHEST 1 VIEW, AP/PA ONLY Indication: Chest pain and cough Comparison: 06/03/2020 Findings: No focal airspace disease in the visualized lungs. Please note that the posterior lower lobes are poorly evaluated by portable radiography. No pleural effusion or pneumothorax. Normal cardiomediastinal silhouette. Impression: 1. No acute cardiopulmonary process by portable radiography. Dictated by: Dictated on workstation # [id number] Dict: 02/11/212019 Trans: 02/11/212020 [facility] [id number] Interpreted by: ASHLEY CARVALHO MD Electronically signed by: ASHLEY CARVALHO MD 02/11/212020 Departure Communication (Admissions) Time/Spoke to Admitting Phy: 20:35 Dr. Taylor Impression Primary Impression: Hypokalemia Additional Impressions: Pleuritic chest pain Elevated d-dimer Allergy to iodinated contrast Asthma exacerbation Qualified Codes: J45.901 - Unspecified asthma with (acute) exacerbation Disposition: ADMITTED INPATIENT Condition: Improved Admissions Decision to Admit Reason: Admit from ER (General) Decision to Admit/Date: Feb 11, 2021 Time/Decision to Admit Time: 20:30 Departure-Patient Inst. Ref[place]: [facility] [place] Primary Care Physician GRETA PIERRE APRN (Family) Primary Care Physician Patient Instructions: Hypokalemia, Pleuritic Chest Pain (DC) Add. Discharge Instructions: Follow-up with your primary care provider soon as possible. Please call first thing in the morning to schedule your appointment. Drink plenty of clear liquids to stay well-hydrated. Return to the hospital at 11:30 tomorrow morning for a VQ scan. Please bring your order form to the registration desk to check-in. Take an kxva-hel-gyqayts allergy medication such as loratadine or cetirizine to help with your allergies. Use your albuterol inhaler provided by the ER up to 4 puffs in a 4-hour period of time. Call with questions or concerns. Return to the ER if you have worsening symptoms. All discharge instructions reviewed with patient and/or family. Voiced understanding. Copy Copies To 1: RITA PORTER JOSHUA T MD Feb 11, 2021 19:53
[2021-02-11 19:54] LABS: BILIRUBIN,URINE NEGATIVE (NEGATIVE); CLARITY,URINE CLEAR; COLOR,URINE YELLOW; GLUCOSE, URINE (UA) 2+ (NEGATIVE); KETONES,URINE NEGATIVE (NEGATIVE); LEUKOCYTE ESTERASE ,URINE NEGATIVE (NEGATIVE); NITRITE,URINE NEGATIVE (NEGATIVE); PROTEIN,URINE NEGATIVE (NEGATIVE)
[2021-02-11 19:56] LABS: ALANINE AMINOTRANSFERASE 26 U/L (0-55); ALBUMIN 3.3 GM/DL (3.2-4.5); ALKALINE PHOSPHATASE 127 U/L (40-136); BILIRUBIN,TOTAL 0.4 MG/DL (0.1-1.0); BUN/CREATININE RATIO 13; CALCIUM 7.6 MG/DL (8.5-10.1); CARBON DIOXIDE 17 MMOL/L (21-32); CHLORIDE 109 MMOL/L (98-107); CREATINE KINASE 48 U/L (29-168); CREATININE SERUM 0.82 MG/DL (0.60-1.30); GFR ESTIMATED > 60; GLUCOSE 278 MG/DL (70-105); MAGNESIUM 1.8 MG/DL (1.6-2.4); SODIUM 142 MMOL/L (135-145); TOTAL PROTEIN 6.3 GM/DL (6.4-8.2)
[2021-02-11 20:08] LABS: BACTERIA,URINE NEGATIVE /HPF
[2021-02-11] MEDS ORDERED: NS IV 1000 ML 1,000 ML IV SCH (20:15)
[2021-02-11] MEDS ORDERED: POTASSIUM CL 10MEQ/50ML IVPB 50 ML IV ONE (20:15)
--- NOTE | 2021-02-11 20:22 | Diagnostic Imaging Report ---
CHEST 1 VIEW, AP/PA ONLY Indication: Chest pain and cough Comparison: 06/03/2020 Findings: No focal airspace disease in the visualized lungs. Please note that the posterior lower lobes are poorly evaluated by portable radiography. No pleural effusion or pneumothorax. Normal cardiomediastinal silhouette. Impression: 1. No acute cardiopulmonary process by portable radiography. Dictated by: Dictated on workstation # [id number]
[2021-02-11] MEDS ORDERED: APIXABAN 5 MG (ELIQUIS) TABLET PO ONE (20:45)
[2021-02-11] MEDS ORDERED: predniSONE 20 MG TAB PO ONE (21:00)
[2021-02-11] MEDS ORDERED: RT-ALBUTEROL INHALER HFA (VENTOLIN HFA) 18 GM IH ONE (22:00)
[2021-02-11] MEDS ORDERED: KCL 10 MEQ TAB (MICRO K) PO ONE (22:00)
[2021-02-11 22:11] VITALS: BP 118/77
== END 2021-02-11 22:11 | disposition other institution (70) ==
LOC: EDUNIT# 18:53 → ER 18:54
DX: J45.901 Unspecified asthma with (acute) exacerbation (principal); E87.6 Hypokalemia; R79.1 Abnormal coagulation profile; I10 Essential (primary) hypertension; E11.9 Type 2 diabetes mellitus without complications; E78.00 Pure hypercholesterolemia, unspecified; G40.409 Other generalized epilepsy and epileptic syndromes, not intractable, without status epilepticus; K21.9 Gastro-esophageal reflux disease without esophagitis; K59.09 Other constipation; F41.9 Anxiety disorder, unspecified; F32.9 Major depressive disorder, single episode, unspecified; F17.210 Nicotine dependence, cigarettes, uncomplicated; Z20.822 Contact with and (suspected) exposure to COVID-19; Z91.041 Radiographic dye allergy status; Z79.4 Long term (current) use of insulin; Z88.6 Allergy status to analgesic agent
CPT/HCPCS: 71045; 80053; 81000; 82550; 83735; 83874; 83880; 84484; 85025; 85379; 85610; 85730; 86141; 87804; 93005; 93041; 99284; U0002; 36415; 87635

== ENCOUNTER → 2021-02-12 | Outpatient (CLI) | payer MEDICARE, MEDICAID ==
[~2021-02-12] MED LIST changes: +CATHETER FLUSH 10 ML SYR IV PRN
--- NOTE | 2021-02-12 14:48 | Diagnostic Imaging Report ---
INDICATION: Shortness of breath. The patient was administered 5.4 mCi technetium 99m MAA intravenously and imaging over the chest was performed in multiple obliquities. There is homogeneous perfusion of both lungs. No pleural-based perfusion defect is identified. IMPRESSION: Normal perfusion lung scan. Dictated by: Dictated on workstation # [id number]
== END ==
LOC: CARD 11:09
PROVIDERS: ATTEND Family Medicine
DX: R07.81 Pleurodynia (principal); J98.4 Other disorders of lung; R06.02 Shortness of breath; R79.1 Abnormal coagulation profile
CPT/HCPCS: 78580; A9540

== ENCOUNTER 2022-08-10 09:48 | Outpatient (RCR) | payer MEDICARE, MEDICAID ==
[~2022-08-10 09:48] MED LIST changes: +ALBU8.5H6 PO; -CATHETER FLUSH 10 ML SYR IV PRN; +CYCL10TA25 PO; -LISI-729 PO; +LISI5TAB20 PO; -POTA99TA21 PO; +POTA99TA26 PO; -RT-ALBUINH PO; +SIMV-333 PO; -SIMV20TA PO; -SULF1TAB35 PO; +SULF1TAB38 PO
== END 2022-09-06 | disposition home or self-care (01) ==
LOC: ONC 09:48
PROVIDERS: ATTEND Internal Medicine Hematology & Oncology
DX: D69.6 Thrombocytopenia, unspecified (principal)
CPT/HCPCS: 81270; 82375; 82668; G0463; 99204

== ENCOUNTER → 2022-08-16 | Outpatient (CLI) | payer MEDICARE, MEDICAID ==
[~2022-08-16] MED LIST changes: -ALBU8.5H6 PO; +RT-ALBUINH PO
--- NOTE | 2022-08-16 09:18 | Diagnostic Imaging Report ---
PROCEDURE: CT abdomen and pelvis without contrast. TECHNIQUE: Multiple contiguous axial images were obtained through the abdomen and pelvis without the use of intravenous contrast. Auto Exposure Controls were utilized during the CT exam to meet ALARA standards for radiation dose reduction. INDICATION: Abnormal laboratory studies. Correlation is made with prior CT from 05/31/2020. The lung bases are clear. No discrete liver mass is detected. Gallbladder is unremarkable. No biliary duct dilatation is seen. The pancreas and spleen are unremarkable. No adrenal mass is identified. There is bilateral nonobstructing nephrolithiasis. Largest calculus on the left measures approximately 8 mm. There is also a calculus in the left renal pelvis measuring 7 mm x 5 mm. No ureteral calculi are identified. No bladder calculi are detected. There is no hydronephrosis. Aorta is calcified but nonaneurysmal. Small and large bowel loops are normal caliber. There is no obstruction. No free fluid or fluid collection is seen. The uterus is unremarkable. No abdominal or pelvic lymphadenopathy is identified. Bony structures are nonacute. IMPRESSION: 1. Bilateral nonobstructing nephrolithiasis. There is also a 7 mm calculus in the left renal pelvis. No hydronephrosis is seen. 2. No other significant abnormality is detected. Dictated by: Dictated on workstation # [id number]
== END ==
LOC: RAD 08:04
PROVIDERS: ATTEND Internal Medicine Hematology & Oncology
DX: D69.6 Thrombocytopenia, unspecified (principal); N20.0 Calculus of kidney
CPT/HCPCS: 74176

== ENCOUNTER 2023-05-11 05:34 | Outpatient (CLI) | payer MEDICARE, MEDICAID ==
[~2023-05-11] VITALS: Ht 170 cm; Wt 65.0 kg
[~2023-05-11 05:34] MED LIST changes: +ALBU8.5H6 PO; -RT-ALBUINH PO
[2023-06-02] MEDS ORDERED: HYDR-3584 PO (12:31)
[2023-06-02] MEDS ORDERED: EMPA25TA PO (12:31)
[2023-06-02] MEDS ORDERED: ARIP10TA10 PO (12:31)
[2023-06-02] MEDS ORDERED: LISI10TA25 PO (12:31)
[2023-06-02] MEDS ORDERED: DULA1.5P2 SQ (12:41)
== END 2023-06-02 12:53 | disposition home or self-care (01) ==
LOC: PREOP 05:34
PROVIDERS: ATTEND Surgery
DX: Z01.818 Encounter for other preprocedural examination (principal)

== ENCOUNTER 2023-07-05 08:18 | Day surgery (SDC) | payer MEDICARE, MEDICAID ==
[~2023-07-05] VITALS: Ht 170 cm; Wt 65.0 kg
[~2023-07-05 08:18] MED LIST changes: +ARIP10TA10 PO; +DULA1.5P2 SQ; +EMPA25TA PO; +HYDR-3584 PO; +LISI10TA25 PO
[2023-07-05] MEDS ORDERED: LACTATED RINGERS 1,000 ML 1,000 ML IV STA (08:22)
[2023-07-05] MEDS ORDERED: HURRICAINE EXT TUBE (BENZOCAINE) XX PRN (08:30)
[2023-07-05 08:31] VITALS: BP 130/96
[2023-07-05] MEDS ORDERED: MIDAZOLAM INJ 2 MG/2 ML VIAL ONE (09:25)
[2023-07-05 10:00] VITALS: BP 115/73
--- NOTE | 2023-07-05 10:00 | Progress Note-Post Operative ---
Post-Operative Progess Note Surgeon (s)/Pin Puller (s) Surgeon GRAHAM CHIANG DO Pin Puller: none Pre-Operative Diagnosis GERD, melena Post-Operative Diagnosis hiatial hernia, mucosal changes of the body, reflux esophagitis, colon polyps Procedure & Operative Findings Date of Procedure 07/05/23 Procedure Performed/Findings egd with biopsies, colonoscopy with hot bx polypectomy x4 Anesthesia Type per SPRIGGER Estimated Blood Loss Estimated blood loss (mL): none Specimens/Packing Specimens Removed antrum, body, ge junction biopsies cecum, transverse polyps GRAHAM CHIANG DO Jul 05, 2023 10:00
--- NOTE | 2023-07-05 10:02 | Discharge Inst-Simple/Standard ---
Discharge Inst-Standard Patient Instructions/Follow Up Plan of Care/Instructions/FU: nereida 2 weeks Activity as Tolerated: Yes Discharge Diet: Regular Diet GRAHAM CHIANG DO Jul 05, 2023 10:02
[2023-07-05 10:05] VITALS: BP 96/64
[2023-07-05 10:10] VITALS: BP 98/56
[2023-07-05 10:40] VITALS: BP 112/62
[2023-07-05 10:47] VITALS: BP 112/62
--- NOTE | 2023-07-05 13:30 | Anesthesia-General Post-Op ---
MAC Patient Condition Mental Status/LOC: Same as Preop Cardiovascular: Satisfactory Nausea/Vomiting: Absent Respiratory: Satisfactory Pain: Controlled Complications: Absent Post Op Complications Complications None Follow Up Care/Instructions Patient Instructions None needed. Anesthesiology Discharge Order Discharge Order Patient is doing well, no complaints, stable vital signs, no apparent adverse anesthesia problems. No complications reported per nursing. MILANA HAMMONDS CRNA Jul 05, 2023 13:29
--- NOTE | 2023-07-05 16:27 | OPERATIVE REPORT ---
DATE OF SERVICE: 07/05/2023 PREOPERATIVE DIAGNOSES: Gastroesophageal reflux disease and History of polyps. POSTOPERATIVE DIAGNOSES: Hiatal hernia, mucosal changes of the body and reflux esophagitis, colon polyps. SURGEON: Graham Jean-Baptiste DO. ANESTHESIA: Per [employer] CONSULTANT. ESTIMATED BLOOD LOSS: None. COMPLICATIONS: None. PROCEDURES: EGD with biopsies, colonoscopy with hot biopsy polypectomy x4. INDICATIONS: The patient is a 62-year-old female with GERD and history of polyps. She understands risks and benefits of procedure and wishes to proceed. Consent was signed in chart. DESCRIPTION OF PROCEDURE: The patient was taken to endoscopy suite and placed in left lateral recumbent position. Timeout was performed. Scope was inserted in the mouth, down the esophagus, stomach, into the duodenum without difficulty. No polyps, masses or ulcerations within the duodenum. Scope was slowly retracted back into the stomach where it was further insufflated. No polyps, masses or ulcerations. Biopsy of the antrum was obtained. Scope was retroflexed noting a small hiatal hernia, but also mucosal changes of the body of the stomach. Biopsy of the body was obtained after biopsy of the antrum was obtained. Scope was then returned to its normal position, slowly withdrawn to the distal esophagus, changes of some reflux esophagitis present. Biopsy of the GE junction was obtained. No polyps, masses or ulcerations. Scope was slowly retracted back until completely removed, noting no other pathology. Digital rectal exam was performed. No palpable polyps, masses or ulcerations. Scope was inserted in the rectum, advanced all the way to the cecum with minimal difficulty. Prep was adequate. Scope was slowly retracted back. No polyps, masses or ulcerations. There were 3 small polyps within the cecum, which hot biopsy polypectomy was performed. Scope was then slowly retracted back. No polyps, masses or ulcerations within the ascending colon and transverse colon. Small polyp was present, which hot biopsy polypectomy was performed. Scope was then slowly retracted back. No polyps, masses or ulcerations in the remainder of the transverse, descending and sigmoid colon. Once in the rectum, scope was retroflexed noting no other pathology. Scope was returned to its normal position, slowly withdrawn until completely removed. The patient tolerated the procedure well without any complications, taken to recovery room in stable condition. RECOMMENDATIONS: The patient to continue on current medications. Will need repeat colonoscopy in 5 years. Any issues before that, be seen at that time. She will follow up in the office in 2 weeks. Job ID: [id number] DocumentID: [id number] Dictated Date: 07/05/2023 10:00:25 [employer]le [employer]icker Date: 07/05/2023 16:25:00 Dictated By: DO TEMO OBANDO
== END 2023-07-05 10:47 | disposition home or self-care (01) ==
LOC: ENDO 08:18
PROVIDERS: ATTEND Surgery
DX: D12.0 Benign neoplasm of cecum (principal); D12.3 Benign neoplasm of transverse colon; K21.00 Gastro-esophageal reflux disease with esophagitis, without bleeding; K44.9 Diaphragmatic hernia without obstruction or gangrene; E11.9 Type 2 diabetes mellitus without complications; F17.210 Nicotine dependence, cigarettes, uncomplicated; Z80.0 Family history of malignant neoplasm of digestive organs; Z79.84 Long term (current) use of oral hypoglycemic drugs; Z79.85 Long-term (current) use of injectable non-insulin antidiabetic drugs; Z79.899 Other long term (current) drug therapy
CPT/HCPCS: 82947; 88305